=== PATIENT | male | born 1945 | race Caucasian/White ===

== ENCOUNTER 2023-06-25 08:47 | Day surgery (SDC) | payer MEDICARE, OTHER, SELFPAY ==
[2023-06-25 09:21] VITALS: BMI 27.5
--- NOTE | 2023-06-25 12:16 | ITS.CL.CARDI ---
Director Of Recreation Therapy - Cardioversion
Cardioversion
Procedure Report:
Procedure: CAROLIN-guided electrical cardioversion
Pre-operative diagnosis: Persistent atrial fibrillation
Post-operative diagnosis: Persistent atrial fibrillation status post DC cardioversion to sinus rhythm
Anesthesia: MAC
Attending Physician: Balwinder cShwartz MD
Procedure Description: The patient was brought to the electrophysiology laboratory in the fasting state. Informed consent was obtained from the patient prior to the start of the procedure. Adherence to anticoagulation was confirmed. Electrodes were
placed on the patient and connected to an external defibrillator. Monitoring of blood pressure, ECG tracings, and pulse oximetry was initiated. The pads were applied to the patient in the anterior and posterior positions. The patient was sedated by
the anesthesiologist. A CAROLIN (reported separately) was performed prior to the cardioversion. No left atrial or left atrial appendage thrombus was seen. After the CAROLIN probe was removed, a 200 joule biphasic synchronized shock was delivered to the
patient under MAC anesthesia. Sinus rhythm was successfully restored. The patient recovered uneventfully from MAC anesthesia. There were no immediate post-procedure complications. The patient left the lab in good condition. The attending physician
was present throughout the entire procedure.
Impression: Successful CAROLIN-guided direct current cardioversion with baptism of sinus rhythm after one 200 joule biphasic synchronized shock.
== END 2023-06-25 12:07 | disposition home or self-care (01) ==
LOC: CATH 08:47
PROVIDERS: ATTENDING PHYSICIAN Internal Medicine Cardiovascular Disease; FAMILY PHYSICIAN Family Medicine; OTHER PHYSICIAN Internal Medicine Cardiovascular Disease
DX: I48.19 Other persistent atrial fibrillation (principal); I08.8 Other rheumatic multiple valve diseases; I08.3 Combined rheumatic disorders of mitral, aortic and tricuspid valves; I70.0 Atherosclerosis of aorta
CPT/HCPCS: 92960; 93312; 93325; 93320; 93005

== ENCOUNTER 2024-03-02 07:47 | Day surgery (SDC) | payer MEDICARE, OTHER, SELFPAY ==
[2024-02-24 09:06] VITALS: BMI 27.1
[2024-03-02] VITALS (16 sets, daily range): BP systolic 99–159; BP diastolic 62–146
[2024-03-02 11:19] LABS: ACT-LR - POC 377 Seconds (116-155)
[2024-03-02 11:39] LABS: ACT-LR - POC 335 Seconds (116-155)
[2024-03-02 12:00] LABS: ACT-LR - POC 360 Seconds (116-155)
[2024-03-02 12:18] LABS: ACT-LR - POC 353 Seconds (116-155)
[2024-03-02] MEDS: ANESTHETIC LOZENGE 1 LOZENGE PO (13:38)
--- NOTE | 2024-03-02 14:01 | ITS.CL.ABL ---
Violin Teacher - Ablation
Ablation
Procedure Report:
AFIB ablation:
Mr. Kaiser is a very pleasant 78 yr old gentleman with symptomatic persistent AF and atrial flutters, is recommended for atrial fibrillation /flutter ablation.
Date of the Procedure:
03/02/2024
Indications:
Persistent atrial fibrillation / atrial flutter
Pre-Operative Diagnosis:
Persistent atrial fibrillation / atrial flutter
Post-Operative Diagnosis:
Persistent atrial fibrillation / atrial flutter
Procedure Performed:
Atrial fibrillation ablation with Pulsed-Field approach for pulmonary vein isolation
Roof dependent atrial flutter ablation
Posterior wall isolation
Performing Physician:
Samm Pang MD
Assistants:
EP staff
Anesthesia:
See anesthesia records
Detailed Description of the Procedure:
Written informed consent was obtained from the patient after a full explanation of the risks and benefits of the procedure including the risks of sedation and anesthesia.
The patient was brought to the electrophysiology laboratory in stable condition in fasting state. Continuous electrocardiographic and hemodynamic monitoring was initiated.
The initial rhythm was atrial fibrillation.
The procedure site was meticulously prepared with surgical scrub and allowed to dry with no pooling. Sterile draping was applied to cover the procedure site. The image intensifier was draped with sterile bag and positioned over the patient. After
infusion of local anesthetic, vascular access was obtained under ultrasound guidance and sheaths were placed over guide wire as detailed below.
Sheath and Catheter Placement:
The following catheters / sheaths were placed
Sheaths:
��������� 17Fr steerable sheath ([employer] Software[employer]rive�, [employer]) in right femoral
��������� 9Fr in right femoral vein
��������� 7Fr in right femoral vein
Catheters:
��������� DAIANA HD Grid mapping catheter � at locations of RA, LA
��������� Farawave� PFA catheter
��������� ICE catheter -AcuNav - at locations of RA, SVC, and RV.
��������� Decapolar Bard catheter in RA and CS
Intracardiac ECHO:
An 8-Singaporean AcuNav intracardiac ECHO (ICE) probe was advanced through the 9-Singaporean sheath in the right femoral vein into the right atrium under fluoroscopic and ICE ultrasound image guidance and a baseline ECHO study was performed. The left atrial
size was dilated. There was moderate tricuspid regurgitation. The aortic valve was grossly normal. There was low normal left ventricular systolic functions. There is no pericardial effusion. All the four veins were identified and has flow
identified. There was sluggish flow noted in the REUBEN.
During the procedure, ICE was used for monitoring of complications, guidance of trans-septal puncture, monitor the catheter position and tracking ablation lesions. No change in the pericardial space noted throughout the procedure.
Trans-septal Puncture:
Heparin was initiated and infused to maintain appropriate ACT. A pigtail guidewire was advanced through the 8-Singaporean sheath in the right femoral vein into the superior vena cava under fluoroscopic and ICE guidance. The 9-Singaporean sheath was exchanged
for a Faradrive sheath which was advanced into the superior vena cava. A transseptal VersaCross RF pigtail via Faradrive connect system was utilized to perform the trans-septal puncture. The apparatus was withdrawn until it was in contact with the
fossa ovalis. The position was adjusted based on fluoroscopy and ultrasound images from ICE. Under fluoroscopic, hemodynamic and ICE ultrasound guidance, left atrium was cannulated by applying RF energy. Once atrial septum was cannulated, the
pigtail wire was advanced into the left atrium. The guide wire was advanced into the left superior pulmonary vein. Both the sheath and the dilator was advanced into the left atrium. The dilator with the needle was withdrawn. Blood was aspirated from
the Faradrive sheath and arterial blood confirmed. The sheath was flushed. Saline injection noted into the left atrium on ICE. The mapping catheter was advanced in the sheath into the left pulmonary vein. Left atrial pressure was measured.
3D Electroanatomic Mapping:
Using the HD Grid catheter advanced through sheath into the left atrium, an electroanatomic map (EAM) of the left atrium was created using Avisena mapping system. The map was used for localization of catheter position and tacking of ablation
lesions.
The EAM of the left atrium showed 4 pulmonary veins with all 4 veins electrically connected to the body the LA. It showed only scattered areas of low voltage on the posterior and anterior wall of the LA in AF with extensive scarring throughout the
LA. The LA was dilated in size.
Following the EAM, preparation were made for ablation.
Ablation:
Ablation # 1: Pulmonary vein Isolation:
Glycopyrrolate 0.2 mg was given prior to the placement of ablation. Using [employer] pulsed field ablation system, pulmonary vein isolation was achieved. First the ablation catheter was placed in the LSPV and ostial ablation lesions were performed in
a counter clock song approach all around the PV ostium circumferentially. Then the catheter was placed on the antral location and multiple ablation lesions were placed circumferentially on the antrum of the vein.
In the similar fashion, the LIPV were isolated.
Then the catheter was moved to right sided veins. The ostial and antral ablations were placed as noted above.
Patient remained in atrial fibrillation.
Ablation #2: Roof dependent flutter ablation
Patient had hx of atrial flutter and the rhythm was switching from AF to FL to AF during the case. The flutter was coming from the LA. The entrainment could not be done due to degeneration into atrial fibrillation.
This was consistent with roof dependent atrial flutter yolanda with extensive scar on the posterior wall and channels conduction on the posterior wall.
Using the pulsed field ablation catheter, the catheter was placed between left superior pulmonary vein and right severe pulmonary vein with series of overlapping ablation lesions placed.
Ablation # 3: Posterior wall isolation:
Using the pulsed field ablation catheter, the catheter was placed on the posterior wall and moved around the posterior wall to have adequate contact and ablations were placed isolating the posterior wall.
Cardioversion:
Once the PV isolation was achieved, decision was made to proceed with cardioversion. A 200 J biphasic shock was applied on the terrie posterior Zoll patches and sinus rhythm was achieved. No significant pause noted.
EPS and Confirmation of the PVI and bidirectional block:
Following achievement of entrance block at the pulmonary veins, pacing from the HD catheter in each of the four veins at 10 milliamps for 2 milliseconds showed entrance and exit block. All PVI were rechecked at the end of the case and remained
isolated. Entrance and exit block were demonstrated in all veins.
Aggressive maneuvers of arrhythmia induction was attempted without any sustained arrhythmia present.
Post ablation Electroanatomic mapping:
Once ablation was completed, the EAM of the LA was done again in sinus rhythm with excellent demarcation of LA myocardium and isolated antral tissue. There was scattered scar noted on the anterior wall with large anteroseptal patch of scar.
The REUBEN had healthy signals and was not isolated.
Procedure End
ICE study was done again that showed no epicardial accumulation. No complications noted.
Following the completion of the EP study, catheters were removed. Protamine 40 mg was given at the end of the procedure and ACT was checked repeatedly. The sheaths were removed and hemostasis achieved with �Figure of 8� and manual compression after
acceptable ACT is achieved.
Left atrial Pressure:
Mean LA pressure was 19mmHg
Mean RA pressure was 14 mmHg.
Estimated Blood loss:
<10 cc
Specimens Removed:
None.
Implants / Devices:
None
Urine output:
None
Packs / Drains/ Tubes:
None
Instrument / Sponge Count Correct:
Yes
Complications of the Procedure:
None
Condition of Patient at Time of Transfer:
Hemodynamically stable with no neurological or vascular compromise.
Summary:
Successful atrial fibrillation ablation with Pulsed Field approach for pulmonary vein isolation, roof dependent flutter ablation and posterior wall isolation. .
Figures from the Procedure:
Figure 1: The electroanatomic mapping (EAM) of the left atrium with bipolar voltage (purple indicates normal electrical activity with tracy as no myocardial muscle electric activity indicating a line of block or scar.
Pre-ablation - in AF
Post ablation - SR
--- NOTE | 2024-03-02 17:30 | W.PN.UPDATE ---
Update Note
Progress Note Update
78 yo WM s/p PVI (same day). He denies cp, sob, surjit diet, voiding, amb w/o dizziness, EKG SB 1deg AVB, occ PAC's. He will resume Eliquis tonight. He will initiate amiodarone 200mg bid. Activity restrictions reviewed. He will f/u SUEDE BRUSHER in 2 weeks. He is
for d/c home after 530pm.
Procedure Performed:
Atrial fibrillation ablation with Pulsed-Field approach for pulmonary vein isolation
Roof dependent atrial flutter ablation
Posterior wall isolation
== END 2024-03-02 17:30 | disposition home or self-care (01) ==
LOC: CATH 07:47
PROVIDERS: ATTENDING PHYSICIAN Internal Medicine Cardiovascular Disease; FAMILY PHYSICIAN Radiology Vascular & Interventional Radiology
DX: I48.19 Other persistent atrial fibrillation (principal); I48.92 Unspecified atrial flutter; I34.0 Nonrheumatic mitral (valve) insufficiency; I25.10 Atherosclerotic heart disease of native coronary artery without angina pectoris; I10 Essential (primary) hypertension; E78.5 Hyperlipidemia, unspecified; Z82.49 Family history of ischemic heart disease and other diseases of the circulatory system; Z79.01 Long term (current) use of anticoagulants
CPT/HCPCS: C1732; C1894; C1730; C1892; C1759; 85347; 93005; 93655; 93656; 93657; C1733; C1766

== ENCOUNTER 2024-03-06 13:01 | Inpatient (IN) | payer MEDICARE, OTHER, SELFPAY ==
[2024-03-06] VITALS (9 sets, daily range): BP systolic 131–172; BP diastolic 76–101; BMI 26.6; BMI 25.8
[2024-03-06 07:47] LABS: % Basophils 0.4 % (0-2); % Eosinophils 3.7 % (0-6); % Lymphocytes 20.7 % (20.5-51.1); % Monocytes 7.6 % (1.7-9.3); % Neutrophils 66.6 % (42.2-75.2); Absolute Eosinophils 0.4 10^3/uL (0-0.7); Absolute Immature Granulocytes 0.1 10^3/uL (0-0.05); Absolute Lymphocytes 2.1 10^3/uL (1.2-3.4); Absolute Monocytes 0.8 10^3/uL (0.1-0.6); Absolute Neutrophils 6.7 10^3/uL (1.4-6.5); Hematocrit 39.1 % (39.0-52.0); Hemoglobin 12.6 g/dL (13.0-18.0); Mean Corp Hgb Conc. 32.2 g/dL (33.0-37.0); Mean Corpuscular Hgb 30.6 pg (27.0-31.0); Mean Corpuscular Volume 94.9 fL (80.0-94.0); Mean Platelet Volume 9.2 fL (7.4-10.4); Nucleated Red Blood Cells % 0.2 % (-); Platelet Count 202 10^3/uL (130-400); Red Blood Cell Count 4.12 10^6/uL (4.70-6.10); Red Cell Dist. Width 13.5 % (11.5-14.5)
--- NOTE | 2024-03-06 07:56 | ED.GENMED ---
History of Present Illness
General
Chief Complaint: Breathing Problem
Source: patient
Exam Limitations: none
Time Seen by Provider: 03/06/24 07:07
Nursing documentation reviewed up to this point in time: agreed with
History of Present Illness
History of Present Illness:
78-year-old male past medical history of hypertension hyperlipidemia presenting to the emergency department today with concerns of worsening shortness of breath over the past 2 days. Had an ablation for A-fib 3 days ago has had decreased appetite
generalized fatigue and shortness of breath seemingly worse with laying flat with some exertion over the past few days. Denies specific chest pain nausea vomiting fevers.
Past History
Past History
ED Past Medical History: HTN, Hypercholesterolemia, Other (Mitral Valve prolapse), Other (Diverticulosis) and Other (colitis)
ED Past Surgical History: None
Social History
Tobacco: Non-smoker
Alcohol: Occasional
Personal:
Living: with family
Family History
Family History: Negative Diabetes, Hypertension, Early CAD or Asthma
Review of Systems
Review of Systems
Allergies reviewed?: Yes
All Other Systems: ROS reviewed and negative except as documented in HPI and ROS
Phy Exam
Physical Exam
Physical Exam:
GENERAL: Alert , in no apparent distress
EYE: pupils equal and reactive
NECK: Supple, no significant adenopathy.
ENT: o/p clr, mmm.
CARDIAC: Regular rate and rhythm .
LUNGS: Clear breath sounds bilaterally, no acute respiratory distress, no wheezes/rales/rhonchi
ABDOMEN: Soft, without focal tenderness, no r/g, no cvat
NEUROLOGICAL: Alert and oriented, no focal neuro deficits
SKIN: Warm and dry, skin intact.
MUSCULOSKELETAL: No edema, well perfused.
PSYCH: Normal and appropriate interaction.
Scores
Heart Failure Risk
Heart Failure Risk Score: Not Applicable
Course
Orders/Labs/Results
Orders:
Orders
03/06/24 06:49
EKG [Electrocardiogram (*1)] Urgent
Reason for Study: Shortness of Breath
03/06/24 06:50
EKG- Treatment ONCE
03/06/24 07:09
Cardiac Monitoring- Treatment ONCE
CR Chest - 2 Views Urgent
Comment:
Reason For Exam: sob
03/06/24 07:38
Comprehensive Metabolic Panel Urgent
Magnesium Urgent
NT-proBNP Urgent
Troponin I Urgent
03/06/24 07:39
Complete Blood Count/With Diff Urgent
03/06/24 08:56
Echo Follow-up Study Urgent
Reason for Study: Shortness of breath
03/06/24 11:15
Apixaban [Eliquis] 5 mg PO BID
03/06/24 11:48
CT Head W/o Iv Contrast Urgent
Comment:
Reason For Exam: Right hand tingling
Furosemide [Lasix] 40 mg IV NOW STA
03/06/24 11:49
COVID-19 Antigen Routine
Source: Nasal Swab
03/06/24 11:50
Lisinopril [Zestril] 40 mg PO NOW STA
03/06/24 12:21
Urinalysis Reflex To Culture Routine
Abnormal Lab Results
03/06/24 03/06/24
07:38 07:39
RBC 4.12 L 10^6/uL
(4.70-6.10)
Hgb 12.6 L g/dL
(13.0-18.0)
MCV 94.9 H fL
(80.0-94.0)
MCHC 32.2 L g/dL
(33.0-37.0)
Abs Immat Gran (auto) 0.1 H 10^3/uL
(0-0.05)
Absolute Neuts (auto) 6.7 H 10^3/uL
(1.4-6.5)
Absolute Monos (auto) 0.8 H 10^3/uL
(0.1-0.6)
Immature Gran % 1.0 H %
(0-0.5)
BUN 28 H mg/dl
(9-20)
Glucose 107 H mg/dl
(70-99)
ALT 75 H U/L
(0-50)
Troponin I 0.942 H* ng/ml
03/06/24 07:39
03/06/24 07:38
Vital Signs
Initial and Last Documented VS:
Initial Vital Signs
Temp Pulse Resp BP Pulse Ox
98.2 F 58 16 161/89 95
03/06/24 06:55 03/06/24 06:55 03/06/24 06:55 03/06/24 06:55 03/06/24 06:55
Last Documented Vital Signs
Temp Pulse Resp BP Pulse Ox
98.2 F 53 17 165/92 93
03/06/24 06:55 03/06/24 11:50 03/06/24 11:45 03/06/24 11:50 03/06/24 11:45
MDM/Problems Addressed
MDM/Problems Addressed:
78-year-old male presenting to the emergency department with concerns of shortness of breath over the past few days. Recently had a cardiac ablation for A-fib 3 days ago. Currently anticoagulated taking amiodarone and Lasix and lisinopril
metoprolol. Feels very mild symptoms at this time. Had significant symptoms this morning upon awakening. Here patient's blood pressure elevated heart rate slightly low in the 50s in no distress here otherwise labs showing elevated troponin level
though hard to interpret concerning patient had recent cardiac ablation also elevated BNP but no old levels for comparison. Chest x-ray with potential small degree of edema. Case was discussed with cardiology and seen by the instructor warper here.
Echo performed. Plan to admit for IV Lasix and ongoing monitoring and treatment.
*Critical Care Note
Total Time (30-74mins, 75-104mins- exclusive of procedures): Not Applicable
ED Attending Note
-
Portions of this chart may have been created with voice recognition software.� Occasional wrong word or��sound alike� substitutions may have occurred due to the inherent limitations of voice recognition software.
Discharge Plan
Departure
Patient Disposition: Admit
Date of Disposition: 03/06/24
Time of Disposition: 12:33
Admit to: Telemetry
Admit to doctor: Roddy
Presentation/result/management discussed w/ accepting MD/DO: Hospitalist
Patient with high blood pressure during this ER visit?: No
Condition: Good
Covid-19: Not Applicable
Discharge Problem:
Shortness of breath, Hand tingling
Prescriptions:
No Action
atorvastatin 80 MG tablet
80 mg PO QPM
metoprolol succinate 50 mg Tablet Extended Release 24 Hr
50 mg PO QPM
amlodipine 5 mg Tablet
5 mg PO DAILY
Eliquis 5 mg Tablet
5 mg PO BID
furosemide [Lasix] 20 mg Tablet
20 mg PO DAILY
amiodarone 200 mg tablet
200 mg PO BID Qty: 60 8RF
ascorbic acid (vitamin C) [Vitamin C] 500 mg Tablet
500 mg PO DAILY
lisinopril 40 mg Tablet
40 mg PO DAILY
cholecalciferol (vitamin D3) [Vitamin D3] 25 mcg (1,000 unit) Tablet
25 mcg PO DAILY
Referrals:
Deo Dumont MD [Family Provider] -
Interventions
Interventions:
*Risk Screen - Suicide Last Done: 03/06/24 06:55
*General Assessment Last Done: 03/06/24 06:55
*Neglect/Abuse Screening Last Done: 03/06/24 06:55
ED- Fall Risk Assessment Last Done: 03/06/24 07:18
*ED COVID-19 Vaccine History Last Done: 03/06/24 07:18
ED- Cardiac Assessment Last Done: 03/06/24 07:18
ED- Pulmonary Assessment Last Done: 03/06/24 07:18
Discharge Date and Time
Print Language: SUDANESE
[2024-03-06 08:02] LABS: ALT (SGPT) 75 U/L (0-50); AST (SGOT) 48 U/L (17-59); Albumin 4.3 g/dl (3.5-5.0); Alkaline Phosphatase 81 U/L (38-126); Blood Urea Nitrogen 28 mg/dl (9-20); Calcium 9.5 mg/dl (8.4-10.2); Carbon Dioxide 26 mmol/L (22-30); Chloride 105 mmol/L (98-107); Estimated Creatinine Clearance 42 ml/min; Glucose 107 mg/dl (70-99); Magnesium 1.7 mg/dl (1.6-2.3); Sodium 143 mmol/L (135-145); Total Protein 6.8 g/dl (6.3-8.2); eGFR 55.53
[2024-03-06 08:17] LABS: NT-proBNP 1540 pg/ml; Troponin I 0.942 ng/ml
--- NOTE | 2024-03-06 10:04 | CON.CAR ---
Addendum entered and electronically signed by Devante Watts MD 03/06/24 12:02:
I saw and examined the patient.
The RADIO COMMUNICATIONS SUPERINTENDENT's note was reviewed and I agree with the note.
78-year-old male with history history of persistent atrial fibrillation, A-fib ablation 03/02/2024, moderate mitral regurgitation and nonobstructive coronary artery disease (cardiac catheterization many years ago with mild nonobstructive disease,
last nuclear stress 2019 normal) patient presents with generalized fatigue and some shortness of breath. He states he has felt tired since his ablation feels more short of breath when he lays down better when he sits up has not complained of
shortness of breath with short walks to the bathroom he has had some decreased appetite and is just has felt more tired and weak. No fever cough or other illness. Review of systems she has had some numbness involving his right hand which has been
persistent and is noticed that ever since he got home from the hospital. No other numbness or weakness no headache and no other neurologic symptoms. proBNP 1500. No overt edema lungs are clear no JVD. Echocardiogram suggest ejection fraction 50
to 55% with elevated PA pressures 55 to 60 mmHg.
Fatigue shortness of breath. Patient may have component of HFpEF postprocedure
-Diuresis with IV Lasix.
-Covid test
-Note amiodarone was a new medication at discharge unclear if he is having fatigue or GI symptoms related to amiodarone
Abnormal troponin. Difficult to interpret with recent procedure. May have elevation in troponin related to ablation. No current complaints of chest pain. ECG with T wave inversions consistent with prior ECG
-Monitor serial troponins
A-fib. Post ablation. In sinus rhythm
-Continue Eliquis.
-Continue amiodarone which was initiated at discharge
Right hand numbness. Etiology unclear. It has been persistent since he has been home. Etiology unclear. May be related to positioning on table for procedure.
-Neuro eval.
Mitral vegetation. Moderate
Original Note:
Consultation
Consultation Request
Date/Time Consultation Requested: 03/06/2024 09:00
Date/Time Consultation Performed: 03/06/2024 09:10
Requesting Provider: PAUL Murray
Performing Provider: ZUHAIR Gutierrez for Dr. Watts
Reason for Consultation: Shortness of breath
Medical History
-
Chief Complaint: Shortness of breath
History of Present Illness:
Bobby Kaiser is an 78-year-old male (known to Dr. Wright, his primary call center consultant), with moderate mitral regurgitation, hypertension, sinus bradycardia, dyslipidemia, mild nonobstructive coronary artery disease, dilated sinus of Valsalva, and
recurrent persistent atrial fibrillation status post ablation 03/02/2024 who presented to the emergency department with a chief complaint of shortness of breath. He reports after the procedure he had a general sense of unwellness. He went home
hoping it would pass. He endorses poor appetite with poor oral intake and shortness of breath. His shortness of breath gets worse lying flat and improves when he sits up. He has no chest pain or chest burning. No dizziness. No
presyncope/syncope.
Past Medical History
Past Medical History: Arrhythmias (Persistent atrial fibrillation [on apixaban]), CAD (Nonobstructive), HTN, Hypercholesterolemia and Valvular Disease (Moderate mitral regurgitation)
Past Surgical History: Orthopedic and Tonsilectomy
Social History
Tobacco: Non-Smoker
Alcohol: Occasional
Drug: None
Personal:
Living: With Family
Employment: Retired
Family History
Family History: Other (Father with fatal OR at the age of 56.)
Allergies / Home Medications
Allergy/AdvReac Type Severity Reaction Status Date / Time
No Known Allergies Allergy Verified 03/06/24 06:55
�Medication �Instructions �Recorded �Confirmed �Type
atorvastatin 80 mg tablet 80 mg PO QPM High cholesterol 09/21/19 03/06/24 History
lisinopril 40 mg tablet (Prinivil) 40 mg PO DAILY Blood pressure 09/21/19 03/06/24 History
amlodipine 5 mg tablet 5 mg PO DAILY 06/25/23 03/06/24 History
apixaban 5 mg tablet (Eliquis) 5 mg PO BID 06/25/23 03/06/24 History
metoprolol succinate 50 mg 50 mg PO DAILY 06/25/23 03/06/24 History
tablet,extended release 24 hr
amiodarone 200 mg tablet 200 mg PO BID #60 tabs 03/02/24 03/06/24 Rx
furosemide 20 mg tablet (Lasix) 20 mg PO DAILY 03/02/24 03/06/24 History
Review of Systems
-
History Source: Patient
All other systems: Negative unless noted
Constitutional: Fatigue
EENT: No Symptoms
Respiratory: Trouble Breathing
Cardiac: No Symptoms
Abdomen/GI: Anorexia
: No Symptoms
Musculoskeletal: No Symptoms
Skin: No Symptoms
Hematologic/Lymphatic: No Symptoms
Physical Exam
Vital Signs
Temp Pulse Resp BP Pulse Ox
98.2 F 49 18 142/77 95
03/06/24 06:55 03/06/24 09:00 03/06/24 09:00 03/06/24 09:00 03/06/24 09:00
Lab Results
03/06/24 07:39
03/06/24 07:38
Troponin I 0.942 ng/ml H* 03/06/24 07:38
Frx-Z-Naxvudyrzod Pept 1540 pg/ml 03/06/24 07:38
Physical Exam
General: Well Developed, Well Nourished, No Apparent Distress and Comfortable
HEENT: Normocephalic, Anicteric and Moist Mucous Membranes
Respiratory: Non Labored Respirations
Cardiac: S1/S2 and Irregular Rhythm; Negative Peripheral Edema
GI: Soft, Non Tender, Non Distended and Normal Bowel Sounds
Musculoskeletal: No Clubbing, No Cyanosis and No Edema
Skin: Warm and Dry
Neuro: AO x 3
Hematologic/Lymphatic: No Lymphadenopathy
Psych: Calm
Impression / Plan
-
IMPRESSION/PLAN: 78M with moderate mitral regurgitation, hypertension, sinus bradycardia, dyslipidemia, mild nonobstructive coronary artery disease, dilated sinus of Valsalva, and recurrent persistent atrial fibrillation status post ablation
03/02/2024 who presented to the emergency department with a chief complaint of shortness of breath.
Primary call center consultant: Dr. Wright
Shortness of breath
-Worse lying flat, improved sitting up
-CXR stable
-proBNP 1540
-Given ablation 03/02/2024, limited echocardiogram to rule out pericardial effusion
Persistent atrial fibrillation status post ablation
-In sinus rhythm
-Groin stable without hematoma
-Oral Anticoagulation: Apixaban 5 mg twice daily
-[id number]: Score at least 4 (HTN, age 75 or more, Vascular disease)
Abnormal troponin, likely nonischemic myocardial injury in the setting of recent cardiac ablation
-Chest pain-free
-Troponin 0.942
Right hand tingling, head CT ordered
Mitral regurgitation, moderate by TTE 06/25/2023
Hypertension, stable medical therapy
Nonobstructive coronary artery disease, stable without chest pain
SUBJECTIVE:
Worsening shortness of breath lying flat, improved sitting up.
DATA:
Transesophageal echocardiogram, 06/25/2023:
Normal left ventricular size, wall thickness and systolic function. No regional
wall motion abnormalities are seen. The ejection fraction is estimated at 55-
60%.
Normal right ventricular size and function.
Dilated left atrium.
No thrombus detected in the left atrial appendage.
Myxomatous (redundant) mitral valve. Moderate mitral regurgitation.
Mild aortic regurgitation.
Mild tricuspid regurgitation. Estimated pulmonary artery pressure is 30 mmHg
assuming right atrial pressure of 3 mmHg.
Data Reviewed
-
EKG: Report Reviewed by me (Sinus rhythm, first-degree AV block, left axis, rate 60)
Labs: Labs Reviewed by me
Old Records: Reviewed
[2024-03-06] MEDS: ELIQUIS 5 MG PO ×2 (11:49→20:10)
[2024-03-06] MEDS: LASIX 40 MG IV (11:50)
--- NOTE | 2024-03-06 12:21 | CON.NEURO ---
Neuro Assessment/Plan
Assessment
Abrupt onset right hand numbness with speech hoarseness following needed cardiac ablation procedure
Differential diagnosis includes subacute ischemic stroke due to the abrupt onset and continued symptomatology, not associated with strength decline suggesting the possibility of a parietal lobe injury
Patient was not a candidate for either tenecteplase (due to time out of window) or intra-arterial thrombectomy (due to NIH stroke scale less than 6)
Plan
Check MRI of brain, may hold off on CT of head which will be less definitive
Check EMG if imaging fails to demonstrate an ischemic lesion
Check lipid profile
Continue apixaban
Continue atorvastatin
Rehabilitation evaluations including speech therapy
Provide medical educational materials
Goal of normotension based on the patient's symptomatology greater than 24 hours since onset
Goal of normoglycemia
DVT prophylaxis with the use of apixaban
Will follow pending results
Consultation
Order
Date of Consultation: 03/06/24
Requesting Provider: Cardiology
Reason for Consult: Right hand numbness
Subjective/Objective
Subjective Data
Date of Service: March 06, 2024
L-handed
Patient underwent successful cardiac ablation on 03/02/2024. Approximately 1 to 2 hours after the procedure, while heading home, the patient noticed sudden onset of right hand numbness involving the 1st through 5th fingers. There is no involvement
of the dorsum. No involvement of the contralateral side. The numbness has improved since onset although persistent.
The patient approximately at the same time of hand numbness began experiencing hoarseness of his speech which has been persistent
There have been no prior episodes of either hand numbness or speech changes. The patient is not aware of any factors which are improving or worsening these problems.
Objective Data
Vital Signs
Temp Pulse Resp BP Pulse Ox
36.8 C 53 17 165/92 93
03/06/24 06:55 03/06/24 11:50 03/06/24 11:45 03/06/24 11:50 03/06/24 11:45
Lab Results
03/06/24 07:39
03/06/24 07:38
Sodium 143 mmol/L (135-145) 03/06/24 07:38
Potassium 4.0 mmol/L (3.5-5.1) 03/06/24 07:38
BUN 28 mg/dl (9-20) H 03/06/24 07:38
Glucose 107 mg/dl (70-99) H 03/06/24 07:38
Calcium 9.5 mg/dl (8.4-10.2) 03/06/24 07:38
Uup-D-Gppxmhgdwzn Pept 1540 pg/ml 03/06/24 07:38
Patient Allergies
No Known Allergies Allergy (Verified 03/06/24 06:55)
CVA Assessment
Onset of Stroke Symptoms
Onset of symptoms known: Yes
Date of onset of symptoms: 03/02/24
Time of onset of symptoms: 16:00
Time pt last seen normal is known: Yes
Date last time pt seen normal: 03/02/24
Time last time pt seen normal: 16:00
NIH Stroke Score
Level of Consciousness: 0 - Alert
LOC Questions: 0-Answers both correctly
LOC Commands: 0-Performs both correctly
Best Horizontal Gaze: 0-Normal
Visual Li: 0=Normal, no visual loss
Facial Palsy: 0=Normal, symmetrical
Motor - Right Arm: 0=No drift 10 seconds
Motor - Left Arm: 0=No drift 10 seconds
Motor - Right Le-No drift 5 seconds
Motor - Left Le-No drift 5 seconds
Limb Ataxia: 0-Absent
Sensation: 0-Normal
Best Language: 0-No aphasia
Dysarthria: 0-Normal
Extinction and Inattention: 0-No abnormality
Total Score:: 0
Tenecteplase Contraindications
Inclusion and Exclusion criteria reviewed: Yes
IAT Contraindications: NIHSS < 6
Review of Systems
-
History Source: Patient and Family
All other systems: Reviewed and negative
EENT: Negative Swallowing Difficulty
Respiratory: Negative Trouble Breathing
Cardiac: Negative Chest Pain
Abdomen/GI: Negative Incontinence of Stool
Genitourinary: Frequency; Negative Incontinence
Musculoskeletal: Negative Back Pain or Neck Pain
Neuro: Speech Problem; Negative Dizzy or Headache
Physical Exam
-
General: No Apparent Distress and Appears Stated Age
Eyes: OU Absent Papilledema, Round OU, [place] Conjunctivae and No Ptosis
HEENT: Anicteric and Moist Mucous Membranes
Neck: Full Range of Motion
Respiratory: No Dyspnea
Cardiac: No JVD
GI: Non-distended
Skin: Unremarkable
Extremities: No Clubbing, No Cyanosis and No Edema
Psych: Intact Judgement/Insight
Extended Neurological Exam
Mood & Affect: Mood Unremarkable and Affect Unremarkable
Attention Span & Concentration: Awake, Alert, Interactive and No Difficulty with 2 Step Request
Memory: Unremarkable
Tremor: Hand Tremor Absent and Head Tremor Absent
Speech: Quantity Unremarkable and Hoarse; Negative Dysarthric
Cranial Nerve II: Left Eye: Pupillary Reactivity Unremarkable, Pupillary Size Unremarkable and Visual Li Intact
Cranial Nerve II: Right Eye: Pupillary Reactivity Unremarkable, Pupillary Size Unremarkable and Visual Li Intact
Cranial Nerves III, IV, : Extraocular Movement: Extraocular Movement Full in all Directions
Cranial Nerve VII: Facial Symmetry: Normal Facial Symmetry
Cranial Nerve VIII: Hearing: Unremarkable Hearing to Normal Conversational Volume
Cranial Nerves IX, X: Palate Movement: Palate Elevation Symmetric
Cranial Nerve XI: Shoulder Shrug: Unremarkable
Cranial Nerve XII: Tongue Protusion: Midline
Muscle Strength, Overall: Full Throughout and Other (Negative Phalen's; full APB and opponens pollicis strength on the right)
Muscle Bulk & Tone: Bulk Unremarkable and Tone Unremarkable
Pronator Drift: No Drift in Upper Extremities
Deep Tendon Reflexes: Unremarkable Throughout
Cold Sensation: Reduced (Right thenar compared with hyperthenar)
Vibration Sensation: Testing in Upper Extremities and Unremarkable
Touch Sensation: Unremarkable
Coordination: Rgigfw-vvkz-ycjpue Testing Unremarkable
Babinski Sign: Absent Bilaterally
Gait & Station: Up from Seated Without Problem; Negative Wide Based
Data Reviewed
-
MRI Head: Ordered
Labs: Report Reviewed
Lipid Profile: Ordered and Pending
Reviewed with: Physician, Nurse, Patient and Family
Old Records: Summarized
Medications
-
Active Medications
Generic Name Dose Route Start Last Admin
Trade Name Freq PRN Reason Stop Dose Admin
Apixaban 5 mg 03/06/24 11:15 03/06/24 11:49
Apixaban (Eliquis) 5 Mg Tablet PO 04/03/24 11:14 5 mg
BID RONNY Administration
Home Medications
�Medication �Instructions �Recorded
atorvastatin 80 mg tablet 80 mg PO QPM High cholesterol 09/21/19
amlodipine 5 mg tablet 5 mg PO DAILY 06/25/23
apixaban 5 mg tablet (Eliquis) 5 mg PO BID 06/25/23
metoprolol succinate 50 mg 50 mg PO QPM 06/25/23
tablet,extended release 24 hr
amiodarone 200 mg tablet 200 mg PO BID #60 tabs 03/02/24
furosemide 20 mg tablet (Lasix) 20 mg PO DAILY 03/02/24
ascorbic acid (vitamin C) 500 mg 500 mg PO DAILY 03/06/24
tablet (Vitamin C)
cholecalciferol (vitamin D3) 25 25 mcg PO DAILY 03/06/24
mcg (1,000 unit) tablet (Vitamin
D3)
lisinopril 40 mg tablet 40 mg PO DAILY 03/06/24
Past History
Past History
ED Past Medical History: Arrthythmia (atrial tachycardia), HTN, Hypercholesterolemia, Other (Mitral Valve prolapse, BPH, Diverticulosis, Lyme disease), Other (Diverticulosis) and Other (colitis)
ED Past Surgical History: Orthopedic (left knee surgery) and Tonsilectomy
Social History
Tobacco: Non-smoker
Alcohol: Occasional
Personal:
Living: with family
Family History
Family History: Negative Diabetes, Hypertension, Early CAD or Asthma
Medications
-
Medications:
Generic Name Dose Route Start Last Admin
Trade Name Freq PRN Reason Stop Dose Admin
Apixaban 5 mg 03/06/24 11:15 03/06/24 11:49
Apixaban (Eliquis) 5 Mg Tablet PO 04/03/24 11:14 5 mg
BID RONNY Administration
[2024-03-06] MEDS: ZESTRIL 40 MG PO (12:42)
--- NOTE | 2024-03-06 12:50 | HPS.HSE ---
Family Physician
-
Family Physician: Deo Dumont MD
Chief Complaint
-
shortness of breath
History of Present Illness
78-year-old male past medical history of persistent atrial fibrillation status post ablation 4 days ago, moderate mitral regurgitation, mitral valve prolapse, nonobstructive CAD, hypertension, hypercholesteremia, presenting with worsening shortness
of breath worse when he lies down flat. Symptoms started prior to ablation 4 days ago but have gotten worse over the past 4 days. He denies any cough or fevers or chills. He denies lower extremity edema. Denies any weight gain or weight loss.
He also intermittently felt some chest achiness described as pressure but denies any chest pain currently. Denies nausea vomiting or diarrhea.
Since he got home from the hospital 4 days ago he has had persistent numbness in his right hand fingers. He denies any pain of the right arm or back. He denies any weakness. He denies any headache, blurry vision, dizziness or vertigo, focal
weakness.
Drinks alcohol socially. Denies smoking.
Multiple family members with heart disease and brother with aortic aneurysm.
Medical History
Past Medical History
Past Medical History: Reports Other (persistent atrial fibrillation status post ablation 4 days ago, moderate mitral regurgitation, mitral valve prolapse, nonobstructive CAD, hypertension, hypercholesteremia,)
Past Surgical History: Reports None
Social History
Tobacco: Non-smoker
Alcohol: Occasional
Drug: None
Family History
Family History: Other ( Multiple family members with heart disease and brother with aortic aneurysm.)
Allergies / Home Medications
Allergies reflects when Allergies were last updated in [facility].
Home Medications with original date entered in [facility]
Allergy/Medication List:
Allergies
Allergy/AdvReac Type Severity Reaction Status Date / Time
No Known Allergies Allergy Verified 03/06/24 06:55
Home Medications
atorvastatin 80 mg tablet 80 mg PO QPM High cholesterol 09/21/19
amlodipine 5 mg tablet 5 mg PO DAILY 06/25/23
apixaban 5 mg tablet (Eliquis) 5 mg PO BID 06/25/23
metoprolol succinate 50 mg tablet,extended release 24 hr 50 mg PO QPM 06/25/23
amiodarone 200 mg tablet 200 mg PO BID #60 tabs 03/02/24
furosemide 20 mg tablet (Lasix) 20 mg PO DAILY 03/02/24
ascorbic acid (vitamin C) 500 mg tablet (Vitamin C) 500 mg PO DAILY 03/06/24
cholecalciferol (vitamin D3) 25 mcg (1,000 unit) tablet (Vitamin D3) 25 mcg PO DAILY 03/06/24
lisinopril 40 mg tablet 40 mg PO DAILY 03/06/24
Review of Systems
-
History Source: Patient
A 12 point ROS was completed and negative except as noted: Yes
Constitutional: Reports No Symptoms
EENT: Reports No Symptoms
Respiratory: Reports See HPI
Cardiac: Reports See HPI
Abdomen/GI: Reports No Symptoms
: Reports No Symptoms
Musculoskeletal: Reports No Symptoms
Skin: Reports No Symptoms
Neurological: Reports No Symptoms
Endocrine: Reports No Symptoms
Hematologic/Lymphatic: Reports No Symptoms
Psych: Reports No Symptoms
Physical Exam
Vital Signs
Vital Signs
Temp Pulse Resp BP Pulse Ox
98.2 F 53 17 165/92 93
03/06/24 06:55 03/06/24 11:50 03/06/24 11:45 03/06/24 11:50 03/06/24 11:45
Physical Exam
General: Well Developed, Well Nourished and No Apparent Distress
HEENT: NormoCephalic, Moist mucous membranes and Atraumatic
Respiratory: Clear
Cardiac: S1/S2 and Regular Rhythm; No Murmur or Rub
GI: Soft, Non Tender, Non Distended and Normal Bowel Sounds; No Organomegaly
Rectal: Deferred by Provider
Musculoskeletal: No Clubbing, No Cyanosis and No Edema
Skin: No Rash
Neuro: Nonfocal/grossly intact
Laboratory Results
-
03/06/24 07:39
03/06/24 07:38
Laboratory Results
Total Bilirubin 1.0 mg/dl (0.2-1.3) 03/06/24 07:38
AST 48 U/L (17-59) 03/06/24 07:38
ALT 75 U/L (0-50) H 03/06/24 07:38
Alkaline Phosphatase 81 U/L (38-126) 03/06/24 07:38
Troponin I 0.942 ng/ml H* 03/06/24 07:38
Data Reviewed
-
Lab Data: Labs Reviewed by me
Old Records: Reviewed
Impression/Plan
-
IMPRESSION:
PLAN:
# Acute HFpEF exacerbation
-Cardiac BNP 1500
-Chest x-ray shows without significant pulmonary edema
-Echo today shows EF of 50 to 55%
-Check COVID
-Check I's and O's, daily weights
-Lasix 40 IV daily
-Cardiology following
# Nonischemic myocardial injury secondary to CHF exacerbation/recent ablation
-Troponin of 0.9
-EKG shows sinus rhythm with first-degree AV block, incomplete left bundle block, LVH appears similar to prior
-Trend troponins
# Right hand numbness possibly secondary to radial nerve palsy versus CVA
-CT head pending
-Neurology consulted
-May need MRI brain
Persistent atrial fibrillation
-Recently started, continue amiodarone
-Continue Eliquis
-Decrease metoprolol from 50 to 25 mg
Moderate mitral regurgitation
History of mitral valve prolapse
Nonobstructive CAD
Essential hypertension
-Continue amlodipine
-Continue lisinopril
Hypercholesterolemia
-Continue statin
Full code
DVT prophylaxis�Eliquis
Cardiac diet
[2024-03-06 13:15] LABS: COVID-19 Antigen Negative (Negative)
[2024-03-06 14:34] LABS: Lipase 127 U/L (23-300)
[2024-03-06 14:40] LABS: Urine Albumin Negative (Neg - Trace); Urine Bilirubin Negative (Negative); Urine Character Clear (Clear); Urine Color Straw; Urine Glucose Negative (Negative); Urine Ketone Negative (Negative); Urine Leukocyte Negative (Negative); Urine Nitrite Negative (Negative); Urine Occult Blood Trace (Negative); Urine Urobilinogen Negative (Neg - 1+)
[2024-03-06 14:58] LABS: Urine White Cell 0-2 /HPF (0-5)
[2024-03-06 16:07] LABS: Troponin I 0.837 ng/ml
[2024-03-06] MEDS: TOPROL XL 25 MG PO (17:34)
[2024-03-06] MEDS: LIPITOR 80 MG PO (17:35)
[2024-03-06] MEDS: PACERONE 200 MG PO (20:10)
[2024-03-06 22:14] LABS: Troponin I 0.677 ng/ml
[2024-03-07 03:35] VITALS: BP 149/84
[2024-03-07 04:46] LABS: % Basophils 0.4 % (0-2); % Immature Granulocytes 0.7 % (0-0.5); % Lymphocytes 26.8 % (20.5-51.1); % Monocytes 8.8 % (1.7-9.3); % Neutrophils 60.3 % (42.2-75.2); Absolute Eosinophils 0.3 10^3/uL (0-0.7); Absolute Immature Granulocytes 0.1 10^3/uL (0-0.05); Absolute Lymphocytes 2.2 10^3/uL (1.2-3.4); Absolute Monocytes 0.7 10^3/uL (0.1-0.6); Hematocrit 36.9 % (39.0-52.0); Hemoglobin 12.9 g/dL (13.0-18.0); Mean Corpuscular Hgb 31.2 pg (27.0-31.0); Mean Corpuscular Volume 89.3 fL (80.0-94.0); Nucleated Red Blood Cells % 0 % (-); Platelet Count 218 10^3/uL (130-400); Red Blood Cell Count 4.13 10^6/uL (4.70-6.10); Red Cell Dist. Width 12.9 % (11.5-14.5); White Blood Cell Count 8.2 10^3/uL (4.8-10.8)
[2024-03-07 05:05] LABS: Troponin I 0.601 ng/ml
[2024-03-07 06:00] VITALS: BMI 25.3
[2024-03-07 06:19] LABS: ALT (SGPT) 59 U/L (0-50); AST (SGOT) 36 U/L (17-59); Albumin 3.9 g/dl (3.5-5.0); Alkaline Phosphatase 88 U/L (38-126); Blood Urea Nitrogen 22 mg/dl (9-20); Carbon Dioxide 26 mmol/L (22-30); Chloride 102 mmol/L (98-107); Estimated Creatinine Clearance 46 ml/min; Glucose 98 mg/dl (70-99); Potassium 3.6 mmol/L (3.5-5.1); Sodium 140 mmol/L (135-145); Total Bilirubin 1.6 mg/dl (0.2-1.3); Total Protein 6.4 g/dl (6.3-8.2); eGFR > 60.00
[2024-03-07 07:30] VITALS: BP 137/75
[2024-03-07] MEDS: ELIQUIS 5 MG PO ×2 (08:12→20:28)
[2024-03-07] MEDS: PACERONE 200 MG PO ×2 (08:12→20:29)
[2024-03-07] MEDS: NORVASC 5 MG PO (08:13)
[2024-03-07] MEDS: VITAMIN C 500 MG PO (08:13)
[2024-03-07] MEDS: ZESTRIL 40 MG PO (08:13)
[2024-03-07] MEDS: LASIX 40 MG IV (08:13)
[2024-03-07] MEDS: VITAMIN D3 (cholecalciferol) 25 MCG PO (08:13)
[2024-03-07 10:14] LABS: Troponin I 0.399 ng/ml
--- NOTE | 2024-03-07 10:22 | PTOTSP ---
Clinical Swallow Evaluation
78M with admission for CHF exacerbation and numbness in right hand and fingers p/w a mildly impaired oropharyngeal swallow likely related to vocal hoarseness s/p recent intubation w/ cardiac ablation.
Recommend:
1. Regular solids, thin liquids
2. Meds as tolerated
3. Strategies: small bites, single sips, slow rate, chew well
4. Consider ENT consult if vocal hoarseness persists
5. [employer] service to follow up x1-2
--- NOTE | 2024-03-07 10:29 | CM ---
Patient seen at bedside. IA completed
Dx: CHF exacerbation
PMH: status post ablation 4 days ago, CAD, HTN, AFIB
Patient lives in a 2 story home with spouse, with 1st floor set up, 2 steps to enter
PLOF: Independent
Denies DME
Denies VN/rehab in past
PCP: Deo Ayon
Pharm[facility]: [facility]
PLAN: Home, currently no needs anticipated. CM to follow
[2024-03-07 11:00] VITALS: BP 141/76
--- NOTE | 2024-03-07 11:32 | W.PN.CD ---
Today's Communication / Plan
-
overall feeling better but not quite at baseline. Continue six with close monitoring of renal function
Neurology assessmentof right had numbnessin progress
afib is stable. Continue current therapy
Impression / Plan
-
IMPRESSION/PLAN: 78M with moderate mitral regurgitation, hypertension, sinus bradycardia, dyslipidemia, mild nonobstructive coronary artery disease, dilated sinus of Valsalva, and recurrent persistent atrial fibrillation status post ablation
03/02/2024 who presented to the emergency department with a chief complaint of shortness of breath.
Primary wool dyer: Dr. Wright
Shortness of breath
- covid negative 03/06/24
-Worse lying flat, improved sitting up
-CXR report wiht mild HF by report with very small effusions
-proBNP 1540
- 03/02/2024, echocardiogram EF 50-55% and no effusion
- IV lasix given
Persistent atrial fibrillation status post ablation
-In sinus rhythm
-Groin stable without hematoma
-Oral Anticoagulation: Apixaban 5 mg twice daily
-[id number]: Score at least 4 (HTN, age 75 or more, Vascular disease)
Abnormal troponin, likely nonischemic myocardial injury in the setting of recent cardiac ablation
-Chest pain-free
-Troponin 0.942 peak on admit has trended down.
- can update noninvasice evaluation for ischemia as outpatient.
Right hand tingling,
- neuro consulted and MRI recommended.
- defer to neruo regarding evaluation
Mitral regurgitation, moderate by TTE 06/25/2023
Hypertension, stable medical therapy
Nonobstructive coronary artery disease, stable without chest pain
SUBJECTIVE:
breathingimproved. No CP
DATA:
Transesophageal echocardiogram, 06/25/2023:
Normal left ventricular size, wall thickness and systolic function. No regional
wall motion abnormalities are seen. The ejection fraction is estimated at 55-
60%.
Normal right ventricular size and function.
Dilated left atrium.
No thrombus detected in the left atrial appendage.
Myxomatous (redundant) mitral valve. Moderate mitral regurgitation.
Mild aortic regurgitation.
Mild tricuspid regurgitation. Estimated pulmonary artery pressure is 30 mmHg
assuming right atrial pressure of 3 mmHg.
Physical Exam
Vital Signs/Labs
Vital Signs
Temp Pulse Resp BP Pulse Ox
97.8 F 59 18 137/75 95
03/07/24 07:30 03/07/24 08:12 03/07/24 07:30 03/07/24 08:12 03/07/24 07:30
03/06/24 03/07/24 03/08/24
06:59 06:59 06:59
Actual Weight 73.301 kg
03/07/24 04:21
03/07/24 04:20
Magnesium 1.7 mg/dl (1.6-2.3) 03/06/24 07:38
03/06/24
07:38
Gdq-O-Qmsqpzdcnlk Pept 1540
LAB Results
03/06/24 03/06/24 03/06/24
07:38 15:35 19:55
Troponin I 0.942 H* 0.837 H* Cancelled
03/06/24 03/07/24 03/07/24
21:43 04:21 09:30
Troponin I 0.677 H* 0.601 H* 0.399 H* D
Physical Exam
Constitutional: No acute distress
Cardiovascular: Rhythm & rate is regular
Respiratory: Respiratory effort normal
GI: Soft
Neuro/Psych: Alert
Data Reviewed
-
Date of Service: March 07, 2024
Medical Decision Making: Reviewed Test Results
EKG: Report Reviewed by me
Medical Tests (PFT, Pathology etc): Report Reviewed by me
Labs: Labs Reviewed by me
[2024-03-07] MEDS: ATIVAN 1 MG PO (11:52)
--- NOTE | 2024-03-07 14:01 | W.PN.HOSP.TC ---
Today's Communication/Plan
-
continue current Tx, recheck BMP in AM
transition Lasix from IV to oral as per Cardio timing
Assessment / Plan
Assessment / Plan
# Acute HFpEF exacerbation
-Cardiac BNP 1500
-Chest x-ray shows without significant pulmonary edema
-Echo today shows EF of 50 to 55%
-Check COVID
-Check I's and O's, daily weights
-Lasix 40 IV daily
-Cardiology following
# Nonischemic myocardial injury secondary to CHF exacerbation/recent ablation
-Troponin of 0.9
-EKG shows sinus rhythm with first-degree AV block, incomplete left bundle block, LVH appears similar to prior
-Trend troponins
# Right hand paresthesia involving fingers, possibly secondary to radial nerve palsy versus CVA
-MRI:There are punctate areas of restricted diffusion in multiple vascular territories involving both cerebral hemispheres in a pattern suggesting nonhemorrhagic embolic infarct with suspected cardiac source. Focal areas of acute/subacute
nonhemorrhagic infarct are detailed above
2). There is mild cortical and cerebellar atrophy with mild nonspecific white matter changes as described above.
-Neurology consulted
[facility] Neck With Contrast - nl
JU[facility] [place] - nl
Persistent atrial fibrillation post ablation, now in NSR
-s/p A. Fib ablation on 03/02
-Recently started, continue amiodarone
-Continue Eliquis
-Decrease metoprolol from 50 to 25 mg
Moderate mitral regurgitation
History of mitral valve prolapse
Nonobstructive CAD
Essential hypertension
-Continue amlodipine
-Continue lisinopril
Hypercholesterolemia
-Continue statin
Full code
DVT prophylaxis�Eliquis
Cardiac diet
Anticipated Discharge: 24 - 48 hours
Subjective/Interval History
-
Date of Service: March 07, 2024
Less sob, still with hoarseness
Objective Data
-
Labs:
Laboratory Results
03/07/24 03/07/24
04:20 04:21
WBC 8.2
Hgb 12.9 L
Hct 36.9 L
Plt Count 218
Sodium 140
Potassium 3.6
Chloride 102
Carbon Dioxide 26
BUN 22 H
Creatinine 1.2
Glucose 98
Calcium 9.0
Total Bilirubin 1.6 H
AST 36
ALT 59 H
Alkaline Phosphatase 88
Vital Signs:
Vital Signs
Temp Pulse Resp BP Pulse Ox
97.9 F 58 18 141/76 95
03/07/24 11:00 03/07/24 11:00 03/07/24 11:00 03/07/24 11:00 03/07/24 11:00
I&O
03/06/24 03/07/24 03/08/24
06:59 06:59 06:59
Intake Total 660 / 660
Balance 660 / 660
Review of Systems
-
History Source: Patient and Coordinated Provider
Constitutional: Denies Fever
EENT: Reports No Symptoms Reported
Respiratory: Reports Trouble Breathing
Cardiac: Reports No Symptoms; Denies Chest Pain
Musculoskeletal: Reports Other (Rt hand fingers, paresthesia)
Physical Exam
-
General: Well Developed, Well Nourished and No Apparent Distress
HEENT: Normocephalic, Atraumatic and Moist Mucous Membranes
Respiratory: Clear to Auscultation; Negative Wheezes, Rales or Rhonchi
Cardiac: Regular Rhythm and S1/S2
GI: Soft, Nontender and Nondistended
Musculoskeletal: No Clubbing, No Cyanosis and No Edema
--- NOTE | 2024-03-07 14:28 | W.PN.NEURO.1 ---
Today's Communication / Plan
-
Check lipid profile
Continue atorvastatin 80 mg daily, add Ezetimibe if LDL greater than 70
Neuro Assessment/Plan
Assessment
Abrupt onset right hand numbness with speech hoarseness following needed cardiac ablation procedure
MRI of brain demonstrates bilateral acute ischemic strokes including in the parietal lobe which are most likely responsible for the right handed sensory change as well as speech change
Plan
Check lipid profile
Continue atorvastatin 80 mg daily, add Ezetimibe if LDL greater than 70
Continue apixaban
Rehabilitation evaluations including speech therapy
Goal of normotension
Goal of normoglycemia
DVT prophylaxis with the use of apixaban
Will follow pending results
Subjective/Objective
Subjective Data
Date of Service: March 07, 2024
Objective Data
Vital Signs
Temp Pulse Resp BP Pulse Ox
36.6 C 58 18 141/76 95
03/07/24 11:00 03/07/24 11:00 03/07/24 11:00 03/07/24 11:00 03/07/24 11:00
Lab Results
03/07/24 04:21
03/07/24 04:20
Sodium 140 mmol/L (135-145) 03/07/24 04:20
Potassium 3.6 mmol/L (3.5-5.1) 03/07/24 04:20
BUN 22 mg/dl (9-20) H 03/07/24 04:20
Glucose 98 mg/dl (70-99) 03/07/24 04:20
Calcium 9.0 mg/dl (8.4-10.2) 03/07/24 04:20
Cas-D-Cultfxwzzvj Pept 1540 pg/ml 03/06/24 07:38
Patient Allergies
No Known Allergies Allergy (Verified 03/06/24 06:55)
Data Reviewed
-
MRI Head: Report Reviewed
MRA Head: Report Reviewed
MRA Neck: Report Reviewed
Labs: Report Reviewed
Lipid Profile: Ordered
Reviewed with: Physician and Patient
Old Records: Summarized
Past History
Past History
ED Past Medical History: Arrthythmia (atrial tachycardia), CVA (Following ablation February 2024), HTN, Hypercholesterolemia, Other (Mitral Valve prolapse, BPH, Diverticulosis, Lyme disease), Other (Diverticulosis) and Other (colitis)
ED Past Surgical History: Cardiac (Cardiac ablation February 2024), Orthopedic (left knee surgery) and Tonsilectomy
Social History
Tobacco: Non-smoker
Alcohol: Occasional
Personal:
Living: with family
Family History
Family History: Negative Diabetes, Hypertension, Early CAD or Asthma
Medications
-
Medications:
Generic Name Dose Route Start Last Admin
Trade Name Freq PRN Reason Stop Dose Admin
Amiodarone HCl 200 mg 03/06/24 20:00 03/07/24 08:12
Amiodarone 200 Mg Tablet PO 04/03/24 19:59 200 mg
BID RONNY Administration
Amlodipine Besylate 5 mg 03/07/24 08:00 03/07/24 08:13
Amlodipine 5 Mg Tablet PO 04/04/24 07:59 5 mg
DAILY RONNY Administration
Apixaban 5 mg 03/06/24 11:15 03/07/24 08:12
Apixaban (Eliquis) 5 Mg Tablet PO 04/03/24 11:14 5 mg
BID RONNY Administration
Ascorbic Acid 500 mg 03/07/24 08:00 03/07/24 08:13
Ascorbic Acid 500 Mg Tablet PO 04/04/24 07:59 500 mg
DAILY RONNY Administration
Atorvastatin Calcium 80 mg 03/06/24 18:00 03/06/24 17:35
Atorvastatin (Lipitor) 80 Mg Tablet PO 04/03/24 17:59 80 mg
QPM RONNY Administration
Cholecalciferol 25 mcg 03/07/24 08:00 03/07/24 08:13
Cholecalciferol (Vitamin D3) 25 Mcg Tablet (1,000 Units) PO 04/04/24 07:59 25 mcg
DAILY RONNY Administration
Furosemide 40 mg 03/07/24 08:00 03/07/24 08:13
Furosemide 40 Mg (10 Mg/Ml) 4 Ml Vial IV 04/04/24 07:59 40 mg
DAILY RONNY Administration
Lisinopril 40 mg 03/07/24 08:00 03/07/24 08:13
Lisinopril 20 Mg Tablet PO 04/04/24 07:59 40 mg
DAILY RONNY Administration
Metoprolol Succinate 25 mg 03/06/24 18:00 03/06/24 17:34
Metoprolol 50 Mg Extended Release Tablet PO 04/03/24 17:59 25 mg
QPM RONNY Administration
Sodium Chloride 0 flush 03/06/24 14:00
Sodium Chloride 0.9% (Flush) Syringe IV 04/03/24 13:59
PER PROTOCOL RONNY
[2024-03-07 15:30] VITALS: BP 106/60
[2024-03-07] MEDS: LIPITOR 80 MG PO (16:43)
[2024-03-07] MEDS: TOPROL XL 25 MG PO (16:43)
[2024-03-07 19:49] VITALS: BP 111/63
[2024-03-07 21:37] LABS: HDL Cholesterol 38 mg/dl; LDL Cholesterol, Calculated 83 mg/dl; Total Cholesterol 134 mg/dl (50-199); Triglyceride 65 mg/dl (10-149); Very Low Density Lipoprotein 13 mg/dl (0-30)
[2024-03-07 23:16] VITALS: BP 119/66
[2024-03-08] VITALS (7 sets, daily range): BP systolic 118–141; BP diastolic 64–72; PULSE 60; O2SAT 97; BMI 25.0
--- NOTE | 2024-03-08 08:31 | W.PN.CD ---
Today's Communication / Plan
-
- CVA noted on MRI .Right hadn numbnes with some improvement today. Manangement per neuro . will try to avoid hypotension
- SOB improved. stop lasix
- check pending labs
-Remains in sinus continue amio and metoprolol and monitor rates
- remains on Eliquis
- holding lisinopril and monitoring BP
Impression / Plan
-
IMPRESSION/PLAN: 78M with moderate mitral regurgitation, hypertension, sinus bradycardia, dyslipidemia, mild nonobstructive coronary artery disease, dilated sinus of Valsalva, and recurrent persistent atrial fibrillation status post ablation
03/02/2024 who presented to the emergency department with a chief complaint of shortness of breath.
Primary merchandise manager: Dr. Wright
Shortness of breath/ acute HFpEF
- covid negative 03/06/24
-Improved - breathing feels back to baseline
-CXR report wiht mild HF by report with very small effusions
-proBNP 1540
- 03/02/2024, echocardiogram EF 50-55% and no effusion
-stop lasix
Persistent atrial fibrillation status post ablation
-In sinus rhythm
-Groin stable without hematoma
-Oral Anticoagulation: Apixaban 5 mg twice daily
-[id number]: Score at least 4 (HTN, age 75 or more, Vascular disease)
- amiodarone started post ablation
- metoprolol lowered. Monitor HR as patietn receives more amio
Abnormal troponin, likely nonischemic myocardial injury in the setting of recent cardiac ablation
-Chest pain-free
-Troponin 0.942 peak on admit has trended down.
- can update noninvasice evaluation for ischemia as outpatient.
Right hand tingling/ CVA
- mild improvement today
- neuro consulted and MRI. MRI of brain demonstrates bilateral acute ischemic strokes including in the parietal lobe which neurology suggests are most likely responsible for the right handed sensory change as well as speech change
- continue tx per neuro
- continuinEliquisas per neuro
Mitral regurgitation, moderate by TTE 06/25/2023
Hypertension, stable medical therapy
Nonobstructive coronary artery disease, stable without chest pain
SUBJECTIVE:
breathing improved. No CP
DATA:
Transesophageal echocardiogram, 06/25/2023:
Normal left ventricular size, wall thickness and systolic function. No regional
wall motion abnormalities are seen. The ejection fraction is estimated at 55-
60%.
Normal right ventricular size and function.
Dilated left atrium.
No thrombus detected in the left atrial appendage.
Myxomatous (redundant) mitral valve. Moderate mitral regurgitation.
Mild aortic regurgitation.
Mild tricuspid regurgitation. Estimated pulmonary artery pressure is 30 mmHg
assuming right atrial pressure of 3 mmHg.
Physical Exam
Vital Signs/Labs
Vital Signs
Temp Pulse Resp BP Pulse Ox
97.5 F 50 18 119/67 96
03/08/24 07:50 03/08/24 07:50 03/08/24 07:50 03/08/24 07:50 03/08/24 07:50
03/07/24 03/08/24 03/09/24
06:59 06:59 06:59
Actual Weight 73.301 kg 72.376 kg
03/07/24 04:21
Magnesium 1.7 mg/dl (1.6-2.3) 03/06/24 07:38
Triglycerides Cancelled 03/07/24 14:30
LDL Cholesterol, Calc Cancelled 03/07/24 14:30
VLDL Cholesterol, Calc Cancelled 03/07/24 14:30
HDL Cholesterol Cancelled 03/07/24 14:30
03/06/24
07:38
Vrq-B-[id number] Pept 1540
LAB Results
03/06/24 03/06/24 03/06/24
07:38 15:35 19:55
Troponin I 0.942 H* 0.837 H* Cancelled
03/06/24 03/07/24 03/07/24
21:43 04:21 09:30
Troponin I 0.677 H* 0.601 H* 0.399 H* D
Physical Exam
Constitutional: No acute distress
Cardiovascular: Rhythm & rate is regular
Respiratory: Wheeze Absent and Rhonchi Absent
GI: Soft and Non tender
Neuro/Psych: Alert, Oriented and AO x 3
Data Reviewed
-
Date of Service: March 08, 2024
Medical Decision Making: Reviewed Test Results
Medical Tests (PFT, Pathology etc): Report Reviewed by me
Labs: Labs Reviewed by me
[2024-03-08] MEDS: NORVASC 5 MG PO (08:51)
[2024-03-08] MEDS: VITAMIN D3 (cholecalciferol) 25 MCG PO (08:51)
[2024-03-08] MEDS: LASIX IV (08:51)
[2024-03-08] MEDS: PACERONE 200 MG PO ×2 (08:51→20:32)
[2024-03-08] MEDS: ELIQUIS 5 MG PO ×2 (08:51→20:33)
[2024-03-08] MEDS: VITAMIN C 500 MG PO (08:51)
[2024-03-08] MEDS: ZESTRIL PO (08:52)
--- NOTE | 2024-03-08 09:02 | W.PN.HOSP.TC ---
Today's Communication/Plan
-
see bold
Assessment / Plan
Assessment / Plan
# Acute HFpEF exacerbation
-Cardiac BNP 1500, chest x-ray shows without significant pulmonary edema
-Echo today shows EF of 50 to 55%
-Appreciate cardiology input, shortness of breath improved status post IV Lasix
# Right hand paresthesia involving fingers
#Acute CVA
-MRI:There are punctate areas of restricted diffusion in multiple vascular territories involving both cerebral hemispheres in a pattern suggesting nonhemorrhagic embolic infarct with suspected cardiac source. Focal areas of acute/subacute
nonhemorrhagic infarct are detailed above
2). There is mild cortical and cerebellar atrophy with mild nonspecific white matter changes as described above.
MA Neck With Contrast - nl
MA [place] - nl
-Appreciate neurology input, LDL 83, currently on atorvastatin 80 mg nightly
-Add Zetia for goal LDL less than 70, check HgA1C
-PT/OT
Essential hypertension
-Continue amlodipine
-Hold lisinopril due to soft BP
Persistent atrial fibrillation post ablation, now in NSR
-s/p A. Fib ablation on 03/02
-Recently started, continue amiodarone
-Continue Eliquis
-Decrease metoprolol from 50 to 25 mg
# Nonischemic myocardial injury secondary to CHF exacerbation/recent ablation
-Troponin of 0.9
-EKG shows sinus rhythm with first-degree AV block, incomplete left bundle block, LVH appears similar to prior
Moderate mitral regurgitation
History of mitral valve prolapse
Nonobstructive CAD
Hypercholesterolemia
-Continue statin
DVT prophylaxis�Eliquis
Full code
Total time spent to see the patient on the floor, examine the patient, review data and lab results, discuss treatment plan with patient, nursing staff around 50 minutes.
Physical Exam
General: No acute distress
HEENT: Normocephalic, Atraumatic, EOMI, MMM
Respiratory: Clear to Auscultation bilaterally
Cardiac: Normal S1/S2, Regular Rate and Rhythm
GI: Soft, Nontender, Nondistended, Normal Bowel Sounds
Extremities: No Clubbing, Cyanosis, or Edema
Neuro: Nonfocal/Grossly Intact
Psych: Calm, Cooperative
Derm: No Visible lesions
Anticipated Discharge: 24 - 48 hours
Subjective/Interval History
-
Date of Service: March 08, 2024
Patient reports that his right hand paresthesias is the same. Denies shortness of breath, no dyspnea with activity. No chest pain.
No fever, no vomiting.
Objective Data
-
Labs:
Laboratory Results
03/08/24
08:05
Sodium Pending
Potassium Pending
Chloride Pending
Carbon Dioxide Pending
BUN Pending
Creatinine Pending
Glucose Pending
Calcium Pending
Vital Signs:
Vital Signs
Temp Pulse Resp BP Pulse Ox
97.5 F 54 18 119/67 96
03/08/24 07:50 03/08/24 08:51 03/08/24 07:50 03/08/24 08:51 03/08/24 07:50
I&O
03/07/24 03/08/24 03/09/24
06:59 06:59 06:59
Intake Total 660 / 660 1260 / 1260
Balance 660 / 660 1260 / 1260
[2024-03-08 09:40] LABS: Blood Urea Nitrogen 32 mg/dl (9-20); Calcium 9.2 mg/dl (8.4-10.2); Carbon Dioxide 30 mmol/L (22-30); Chloride 100 mmol/L (98-107); Estimated Creatinine Clearance 39 ml/min; Glucose 95 mg/dl (70-99); Potassium 3.8 mmol/L (3.5-5.1); Sodium 138 mmol/L (135-145); eGFR 50.81
--- NOTE | 2024-03-08 11:02 | CM ---
application architect manager reviewed patient's chart and met with patient and patient to return to home when stable, no needs.
Plan; Home no needs when stable.
[2024-03-08] MEDS: ZETIA 10 MG PO (17:28)
[2024-03-08] MEDS: LIPITOR 80 MG PO (17:29)
[2024-03-08] MEDS: TOPROL XL 25 MG PO (17:29)
[2024-03-09 03:51] VITALS: BP 128/79
[2024-03-09 06:00] VITALS: BMI 25.0
[2024-03-09 07:02] VITALS: BP 129/67
[2024-03-09] MEDS: NORVASC 5 MG PO (08:36)
[2024-03-09] MEDS: ELIQUIS 5 MG PO (08:36)
[2024-03-09] MEDS: VITAMIN D3 (cholecalciferol) 25 MCG PO (08:37)
[2024-03-09] MEDS: ZETIA 10 MG PO (08:37)
[2024-03-09] MEDS: VITAMIN C 500 MG PO (08:37)
[2024-03-09] MEDS: PACERONE 200 MG PO (08:37)
--- NOTE | 2024-03-09 08:54 | W.PN.HOSP.TC ---
Today's Communication/Plan
-
Cleared by cardiology for discharge today
Assessment / Plan
Assessment / Plan
# Acute HFpEF exacerbation
-Cardiac BNP 1500, chest x-ray shows without significant pulmonary edema
-Echo today shows EF of 50 to 55%
-Appreciate cardiology input, shortness of breath improved status post IV Lasix
-Cleared by cardiology for discharge on Lasix 20 mg daily, cardiology started Aldactone 25 mg daily
# Right hand paresthesia involving fingers
#Acute CVA
-MRI:There are punctate areas of restricted diffusion in multiple vascular territories involving both cerebral hemispheres in a pattern suggesting nonhemorrhagic embolic infarct with suspected cardiac source. Focal areas of acute/subacute
nonhemorrhagic infarct are detailed above
2). There is mild cortical and cerebellar atrophy with mild nonspecific white matter changes as described above.
MA Neck With Contrast - nl
MA [place] - nl
-Appreciate neurology input, LDL 83, currently on atorvastatin 80 mg nightly
-Added Zetia for goal LDL less than 70, HgbA1C 6.0
-PT/OT -independent
Essential hypertension
-Cardiology recommends stopping amlodipine, stopping metoprolol
-Resume lisinopril 40 mg daily upon discharge
Persistent atrial fibrillation post ablation, now in NSR
-s/p A. Fib ablation on 03/02/24
-Recently started, continue amiodarone
-Continue Eliquis
-Cardiology recommends stopping metoprolol
#Glucose intolerance/prediabetes
Hemoglobin A1c 6.0
Patient informed of his diagnosis, recommend dietary modification
#Voice hoarseness
From endotracheal intubation during his ablation on 03/02/2024
Supportive care
# Nonischemic myocardial injury secondary to CHF exacerbation/recent ablation
-Troponin of 0.9
-EKG shows sinus rhythm with first-degree AV block, incomplete left bundle block, LVH appears similar to prior
Moderate mitral regurgitation
History of mitral valve prolapse
Nonobstructive CAD
Hypercholesterolemia
-Continue statin
DVT prophylaxis�Eliquis
Full code
Physical Exam
General: No acute distress
HEENT: Normocephalic, Atraumatic, EOMI, MMM
Respiratory: Clear to Auscultation bilaterally
Cardiac: Normal S1/S2, Regular Rate and Rhythm
GI: Soft, Nontender, Nondistended, Normal Bowel Sounds
Extremities: No Clubbing, Cyanosis, or Edema
Neuro: Nonfocal/Grossly Intact
Psych: Calm, Cooperative
Derm: No Visible lesions
Anticipated Discharge: Today
Subjective/Interval History
-
Date of Service: March 09, 2024
Right finger paresthesias continues to improve. Reports some throat hoarseness. No chest pain, no shortness of breath. No fever, no vomiting.
Objective Data
-
Vital Signs:
Vital Signs
Temp Pulse Resp BP Pulse Ox
98.5 F 54 18 129/67 96
03/09/24 07:02 03/09/24 07:02 03/09/24 07:02 03/09/24 07:02 03/09/24 07:02
I&O
03/08/24 03/09/24 03/10/24
06:59 06:59 06:59
Intake Total 1260 / 1260 1440 / 1440
Balance 1260 / 1260 1440 / 1440
--- NOTE | 2024-03-09 10:59 | CM ---
Chart reviewed and plan is to home when stable, no needs
Plan; Home when stable.
[2024-03-09 11:10] VITALS: BP 148/84
--- NOTE | 2024-03-09 11:27 | W.PN.CD ---
Today's Communication / Plan
-
Stop metoprolol to allow for Amio
Stop Amlodipine
Add Aldactone 25 mg daily
Resume PO Lasix 20 mg daily
BMP 2 and 4 weeks
Later I will add SGLT2-I if not too expensive and likely move GIOVANNI-I to ARB or possibly ARNI
Will consider outpatient stress test
Impression / Plan
-
IMPRESSION/PLAN: 78M with moderate mitral regurgitation, hypertension, sinus bradycardia, dyslipidemia, mild nonobstructive coronary artery disease, dilated sinus of Valsalva, and recurrent persistent atrial fibrillation status post ablation
03/02/2024 who presented to the emergency department with a chief complaint of shortness of breath.
Primary conservation engineer: Dr. Wright
Shortness of breath/ acute HFpEF
- covid negative 03/06/24
-Improved - breathing feels back to baseline
-CXR report wiht mild HF by report with very small effusions
-proBNP 1540
- 03/02/2024, echocardiogram EF 50-55% and no effusion
-move to PO Lasix, add aldactone
Persistent atrial fibrillation status post ablation
-In sinus rhythm
-Groin stable without hematoma
-Oral Anticoagulation: Apixaban 5 mg twice daily
-[id number]: Score at least 4 (HTN, age 75 or more, Vascular disease)
- amiodarone started post ablation
- will stop metoprolol to allow AMIO
- At least 3-6 months of AMIO IS PLANNED
Abnormal troponin, likely nonischemic myocardial injury in the setting of recent cardiac ablation
-Chest pain-free
-Troponin 0.942 peak on admit has trended down.
- can update noninvasice evaluation for ischemia as outpatient.
Right hand tingling/ CVA
- mild improvement today
- neuro consulted and MRI. MRI of brain demonstrates bilateral acute ischemic strokes including in the parietal lobe which neurology suggests are most likely responsible for the right handed sensory change as well as speech change
- continue tx per neuro
- continuinEliquisas per neuro
Mitral regurgitation, moderate by TTE 06/25/2023
Hypertension, stable medical therapy
Nonobstructive coronary artery disease, stable without chest pain
SUBJECTIVE:
breathing improved. No CP
DATA:
Transesophageal echocardiogram, 06/25/2023:
Normal left ventricular size, wall thickness and systolic function. No regional
wall motion abnormalities are seen. The ejection fraction is estimated at 55-
60%.
Normal right ventricular size and function.
Dilated left atrium.
No thrombus detected in the left atrial appendage.
Myxomatous (redundant) mitral valve. Moderate mitral regurgitation.
Mild aortic regurgitation.
Mild tricuspid regurgitation. Estimated pulmonary artery pressure is 30 mmHg
assuming right atrial pressure of 3 mmHg.
Physical Exam
Vital Signs/Labs
Vital Signs
Temp Pulse Resp BP Pulse Ox
98.5 F 54 18 129/67 96
03/09/24 07:02 03/09/24 07:02 03/09/24 07:02 03/09/24 07:02 03/09/24 07:02
03/08/24 03/09/24 03/10/24
06:59 06:59 06:59
Actual Weight 72.376 kg 72.291 kg
03/07/24 04:21
03/08/24 08:05
Magnesium 1.7 mg/dl (1.6-2.3) 03/06/24 07:38
Triglycerides Cancelled 03/07/24 14:30
LDL Cholesterol, Calc Cancelled 03/07/24 14:30
VLDL Cholesterol, Calc Cancelled 03/07/24 14:30
HDL Cholesterol Cancelled 03/07/24 14:30
03/06/24
07:38
Jqy-O-Iewgjemoyni Pept 1540
LAB Results
03/06/24 03/06/24 03/06/24
15:35 19:55 21:43
Troponin I 0.837 H* Cancelled 0.677 H*
03/07/24 03/07/24
04:21 09:30
Troponin I 0.601 H* 0.399 H* D
Physical Exam
Constitutional: No acute distress
EENT: Anicteric
Cardiovascular: Rhythm & rate is regular and Pedal edema is absent
Respiratory: Respiratory effort normal and Lungs clear to auscul.
GI: Soft and Distention absent
Neuro/Psych: AO x 3
Data Reviewed
-
Date of Service: March 09, 2024
--- NOTE | 2024-03-09 12:04 | W.DCSUMMARY ---
Discharge Summary
Discharge Data
Date of Admission: 03/06/24
Date of Discharge: 03/09/24
-
Pending Results: No
Hospital Course
Discharge diagnosis:
Acute heart failure with a preserved ejection fraction
Acute stroke
Right hand paresthesias involving the fingers
Essential hypertension
Persistent atrial fibrillation status post ablation 03/02/2024
Voice hoarseness from intubation during procedure
Glucose intolerance
Nonischemic myocardial injury troponin elevation
Moderate mitral regurgitation
Coronary artery disease
Hyperlipidemia
Consults: Cardiology, neurology
Brain MRI:
1).There are punctate areas of restricted diffusion in multiple vascular territories involving both cerebral hemispheres in a pattern suggesting nonhemorrhagic embolic infarct with suspected cardiac source. Focal areas of acute/subacute
nonhemorrhagic infarct are detailed above
2). There is mild cortical and cerebellar atrophy with mild nonspecific white matter changes as described above.
Hospital course:
78-year-old male with a past medical history of atrial fibrillation status post ablation 03/02/2024, hypertension, hyperlipidemia, and coronary artery disease was admitted for acute heart failure with a preserved ejection fraction. Patient was seen
in conjunction with cardiology, and diuresed with IV Lasix. His breathing normalized. Cardiology recommends discharge on Lasix 40 mg p.o. daily.
Patient's hospital course was complicated by acute stroke. He had right hand paresthesia. He was seen in conjunction with neurology. He is already on Eliquis 5 mg twice a day, and atorvastatin 80 mg every afternoon. Since his LDL was 83,
neurology recommends adding Zetia for goal LDL less than 70. Patient's hemoglobin A1c is 6.0, he has glucose intolerance. Dietary modification was recommended to the patient.
Patient is bradycardic. He was recently started on amiodarone. Cardiology recommends stopping metoprolol and amlodipine. He was started on Aldactone 25 mg daily, and can continue amiodarone 200 mg twice daily and lisinopril 40 mg daily.
Patient is medically stable for discharge. He needs to follow-up with cardiology in the office as scheduled, as well as his primary care doctor in 1 week.
Disposition: Home self-care
Discharge planning: Required 50
Discharge Plan
-
Patient Disposition: Home (Routine Discharge)
Discharge Diagnosis/Procedures: Acute heart failure with a preserved ejection fraction, persistent atrial fibrillation status post ablation, stroke, right hand paresthesia
Condition: Good
Diet: Low Fat and Low Cholesterol
Activity: As tolerated
Driving Restrictions: As prior to admission
Blood Work: BMP when you follow-up with cardiology
Activity Restrictions/Additional Instructions:
Please follow-up with your primary care doctor in 1 week, and cardiology as directed.
Instructions: *CBC Heart Failure Instructions
Referrals:
Deo Dumont MD [Family Provider] - in one week
Prescriptions:
New
spironolactone 25 mg Tablet
25 mg PO DAILY Qty: 30 0RF
ezetimibe 10 mg Tablet
10 mg PO DAILY Qty: 30 0RF
Continued
atorvastatin 80 MG tablet
80 mg PO QPM
Eliquis 5 mg Tablet
5 mg PO BID
furosemide [Lasix] 20 mg Tablet
20 mg PO DAILY
amiodarone 200 mg tablet
200 mg PO BID Qty: 60 8RF
ascorbic acid (vitamin C) [Vitamin C] 500 mg Tablet
500 mg PO DAILY
lisinopril 40 mg Tablet
40 mg PO DAILY
cholecalciferol (vitamin D3) [Vitamin D3] 25 mcg (1,000 unit) Tablet
25 mcg PO DAILY
Discontinued
metoprolol succinate 50 mg Tablet Extended Release 24 Hr
50 mg PO QPM
amlodipine 5 mg Tablet
5 mg PO DAILY
Discharge Orders:
Discharge Patient (As Directed); Ordered 03/09/24
Ordered By: Prateek Davis
Discharge Date and Time
Discharge Date/Time: 03/09/24 13:31
Print Language: WOLOF
--- NOTE | 2024-03-09 12:31 | PTOTSP ---
ST Acute Care Evaluations/Follow-Up
Given the results of pt's MRI of Brain, additional cognitive linguistic testing was deemed warranted.
Background Information:
- Pt lives in a home with his .
- At baseline, pt independently drives, manages his finances, and manages his medications. Pt's manges the groceries, cooking, cleaning, and laundry. Pt is a retired CPA. He enjoys exercising, golfing, going out on their boat, and going to
their [employer]. Pt is left handed. Pt wears reading glasses. Pt denies any hearing difficulties.
General Observations:
- Pt had adequate recall of his chief complaints for coming to the hospital, his diagnoses, and how his diagnoses are impacting his current function.
- Pt was observed to have a weak, breathy, harsh vocal quality.
- Pt demonstrated intermittent throat clearing at baseline, even without PO intake.
Formal Assessments:
- Pt was administered the MOCA - pt received a score of a 26/30 which is indicative of WFL. Pt lost 1 point for a visuospatial copy task, 1 point for a short term memory task, 1 point for a naming task, and 1 point for a generative naming task.
- Pt was administered the Quick Aphasia Battery (QAB), and received the following scores:
Word comprehension 10.00 (WFL)
Sentence comprehension 10.00 (WFL)
Word finding 8.25 (MILD)
Grammatical construction 10.00 (WFL)
Speech motor programming 10.00 (WFL)
Repetition 10.00 (WFL)
Reading 10.00 (WFL)
QAB overall 9.76 (WFL)
Findings:
Overall, pt presents with an atypical vocal quality that should be assessed further by ENT prior to receiving tx by FRAME ALIGNER. Pt also presents with some mild word finding difficulties that should be investigated further. Pt continues to present with
clinical signs of a possible pharyngeal dysphagia - difficult to differentiate from baseline throat clearing. Will continue to monitor while admitted to the hospital.
Recommendations:
- Pt needs an ENT consult prior to receiving any voice tx by FRAME ALIGNER. This can be completed as an OP, if needed.
- Pt should continue receiving FRAME ALIGNER services while admitted to monitor/tx dysphagia, anomia, and voice needs.
- Pt would benefit from ongoing FRAME ALIGNER services upon d/c at the OP level of care.
--- NOTE | 2024-03-10 09:49 | W.HF.CON ---
Heart Failure
- LV Function
Left ventricular function study result: LV Ejection fraction >/= 50%
Ejection Fraction Percentage: 50-55
- ARNI
Patient already on ARNI: No
Heart Failure ARNI Not Indicated: LV Ejection Fraction >/= 40%
- ACEI/ARB
Patient already on ACEI/ARB: Yes
- Beta Nery
Patient already on Evidence Based Beta Nery: No
Heart Failure Evidence Based Beta Nery Not Indicated: LV Ejection Fraction > 40%
- Mineralocorticord Receptor Antagonist
Patient already on MRA: Yes
- SGLT-2 Inhibitor
Patient already on SGLT-2 Inhibitor: No
Heart Failure SGLT-2 Inhibitor Not Indicated: LV Ejection Fraction >40%
- Afib Anticoagulation
Patient already on Anticoagulation for Afib: Yes
- NYHA CHF Classification
NYHA CHF Classification Level: Class III - Symptoms w/ min exertion, interferes w/ nml daily activity
- ACC/AHA Stage
ACC/AHA Stage: Stage C: Symptomatic Heart Failure
== END 2024-03-09 13:31 | disposition home or self-care (01) | DRG 64 ==
LOC: 4 WEST ACU 13:01
PROVIDERS: Internal Medicine; Nurse Practitioner Gerontology; Physician Assistant; ADMITTING PHYSICIAN Hospitalist; ATTENDING PHYSICIAN Family Medicine; EMERGENCY PHYSICIAN Student in an Organized Health Care Education/Training Program; FAMILY PHYSICIAN Radiology Vascular & Interventional Radiology; OTHER PHYSICIAN Internal Medicine Cardiovascular Disease; OTHER PHYSICIAN Psychiatry & Neurology Neurology
DX: I63.9 Cerebral infarction, unspecified (principal); I50.33 Acute on chronic diastolic (congestive) heart failure; I48.19 Other persistent atrial fibrillation; I5A Non-ischemic myocardial injury (non-traumatic); I11.0 Hypertensive heart disease with heart failure; I08.1 Rheumatic disorders of both mitral and tricuspid valves; I25.10 Atherosclerotic heart disease of native coronary artery without angina pectoris; E78.00 Pure hypercholesterolemia, unspecified; I44.0 Atrioventricular block, first degree; R20.0 Anesthesia of skin; Z79.01 Long term (current) use of anticoagulants; Z79.899 Other long term (current) drug therapy; Z82.49 Family history of ischemic heart disease and other diseases of the circulatory system; K57.30 Diverticulosis of large intestine without perforation or abscess without bleeding; Z11.52 Encounter for screening for COVID-19; J45.909 Unspecified asthma, uncomplicated; N40.0 Benign prostatic hyperplasia without lower urinary tract symptoms
CPT/HCPCS: 93308; 70544; 70548; 70551; 71046; 80048; 80053; 80061; 81003; 81015; 83036; 83690; 83735; 83880; 84484; 85025; 87811; 92523; 92526; 92610; 93005; 97116; 97162; 99285; A9585

== ENCOUNTER 2024-06-11 15:03 | Inpatient (IN) | payer MEDICARE, OTHER, SELFPAY ==
[2024-06-11] VITALS (18 sets, daily range): BP systolic 119–176; BP diastolic 59–106; PULSE 54–100; BMI 24.6
[2024-06-11 08:53] LABS: % Basophils 0.4 % (0-2); % Eosinophils 1.5 % (0-6); % Immature Granulocytes 0.4 % (0-0.5); % Monocytes 7.4 % (1.7-9.3); % Neutrophils 50.3 % (42.2-75.2); Absolute Eosinophils 0.2 10^3/uL (0-0.7); Absolute Lymphocytes 3.9 10^3/uL (1.2-3.4); Absolute Monocytes 0.7 10^3/uL (0.1-0.6); Absolute Neutrophils 4.9 10^3/uL (1.4-6.5); Hematocrit 36.4 % (39.0-52.0); Hemoglobin 12.5 g/dL (13.0-18.0); Mean Corp Hgb Conc. 34.3 g/dL (33.0-37.0); Mean Corpuscular Hgb 31.5 pg (27.0-31.0); Mean Corpuscular Volume 91.7 fL (80.0-94.0); Mean Platelet Volume 8.9 fL (7.4-10.4); Nucleated Red Blood Cells % 0 % (-); Platelet Count 212 10^3/uL (130-400); Red Blood Cell Count 3.97 10^6/uL (4.70-6.10); Red Cell Dist. Width 13.7 % (11.5-14.5); White Blood Cell Count 9.8 10^3/uL (4.8-10.8)
[2024-06-11 09:09] LABS: ALT (SGPT) 139 U/L (0-50); AST (SGOT) 97 U/L (17-59); Alkaline Phosphatase 99 U/L (38-126); Blood Urea Nitrogen 47 mg/dl (9-20); Calcium 9.5 mg/dl (8.4-10.2); Carbon Dioxide 19 mmol/L (22-30); Chloride 108 mmol/L (98-107); Glucose 116 mg/dl (70-99); Potassium 3.8 mmol/L (3.5-5.1); Sodium 137 mmol/L (135-145); Total Protein 6.7 g/dl (6.3-8.2); eGFR 37.58
[2024-06-11 09:16] LABS: NT-proBNP 189 pg/ml; Troponin I < 0.012 ng/ml
--- NOTE | 2024-06-11 09:47 | ED.GENMED ---
History of Present Illness
General
Chief Complaint: Breathing Problem
Source: patient and spouse
Exam Limitations: none
Time Seen by Provider: 06/11/24 09:40
Nursing documentation reviewed up to this point in time: agreed with
History of Present Illness
History of Present Illness:
78 yo male w h/o Afib on Eliquis, HTN, HLD, CHF, MVP, CVA following ablation 2023, presents for general fatigue, weakness, NAIDU progressing over past [address] Wright 2-3 weeks ago as d/u after cardio ablation and put back on Lasix 40 mg
daily and Spironolactone 10 mg daily. States 'I really didn't feel well since then until about the end of April,' started to fell a little better and felt OK at visit with Dr. Wright.
Reports 13 lb wt loss since Feb 2024, appetite is poor. Denies n/v/d/c
Past History
Past History
ED Past Medical History: Arrthythmia (atrial tachycardia), CVA (Following ablation February 2024), HTN, Hypercholesterolemia, Other (Mitral Valve prolapse, BPH, Diverticulosis, Lyme disease), Other (Diverticulosis) and Other (colitis)
ED Past Surgical History: Cardiac (Cardiac ablation February 2024), Orthopedic (left knee surgery) and Tonsilectomy
Social History
Tobacco: Non-smoker
Alcohol: Occasional
Personal:
Living: with family
Family History
Family History: Negative Diabetes, Hypertension, Early CAD or Asthma
Review of Systems
Review of Systems
Allergies reviewed?: Yes
Constitutional: Reports fatigue; Denies fever
Respiratory: Reports trouble breathing (SOB with exertion (steps) past 10 days); Denies cough
Cardiac: Denies chest pain, diaphoresis, palpitations or syncope
ABD/GI: Reports anorexia; Denies abdominal pain, nausea, vomiting or diarrhea
: Denies dysuria, frequency or difficulty voiding
Musculoskeletal: Reports no symptoms
Skin: Reports no symptoms
Neurological: Reports no symptoms
Phy Exam
Physical Exam
Physical Exam:
GENERAL: No acute distress. A&Ox3.
CONSTITUTIONAL: Afebrile.
EYES: clear, conjunctivae normal
ENMT: moist mucus membranes
RESPIRATORY: Regular respirations, nonlabored, lungs clear.
CARDIOVASCULAR: Regular rate and rhythm, no murmurs, no rubs.
GI: Soft, nontender, normal BS
MUSCULOSKELETAL: Moves with ease. Well perfused. No edema
SKIN: Warm, dry, pink
PSYCH: Normal mood and affect. Well kept, interactive and appropriate
NEUROLOGIC: Awake, alert and oriented. No focal neurological deficits
Scores
Heart Failure Risk
Heart Failure Risk Score: Not Applicable
Course
Orders/Labs/Results
Orders:
Orders
06/11/24 08:17
TSH Reflex To Free T4 Urgent
Comment: ADD
06/11/24 08:35
EKG [Electrocardiogram (*1)] Urgent
Reason for Study: Shortness of Breath
06/11/24 08:36
EKG- Treatment ONCE
06/11/24 08:47
Complete Blood Count/With Diff Urgent
Comprehensive Metabolic Panel Urgent
Magnesium Urgent
Comment: ADD
NT-proBNP Urgent
Troponin I Urgent
06/11/24 10:07
Electrocardiogram (*1) Urgent
Reason for Study: Shortness of Breath
EKG- Treatment ONCE
06/11/24 10:09
CR Chest - 2 Views Urgent
Comment:
Reason For Exam: SOB
06/11/24 10:14
COVID-19 Antigen Urgent
Source: Nasal Swab
Influenza A+B Rapid Molecular Urgent
SURINDER Source: Nasal Swab
Specimen Description:
06/11/24 10:15
0.9% Sodium Chloride 500 ml [Nss] 500 ml IV BOLUS
06/11/24 11:23
Add On- LAB Urgent
Tests Added?: Magnesium, TSH reflex to T4
06/11/24 11:57
CARDIOLOGY CONSULT Urgent
Consulting Provider: Armand Barnes
Was physician already notified: Yes
Reason for consult: symptomatic bradycardia
06/11/24 12:30
Add On- LAB Urgent
Tests Added?: TSH w/Reflex
06/11/24 12:35
Echo 2D MMode Color/Doppler Routine
Reason for Study: sob/naidu, MVP, mod MR
Orthostatic Vital Signs As Directed
Orthostatic VS Frequency: Now
06/11/24 14:43
Admit/Transfer Patient As Directed
Co-Sign Provider:
Level of Care: Inpatient admission
Assign to:: Telemetry
Physician / Group: Janki
Diagnosis: JACKIE, Orthostasis
Reason for Telemetry: Arrhythmia
Date to Stop Telemetry: 06/14/24
Time to Stop Telemetry: 11:00
Reason for Hospitalization: IVFs
Expected length of stay greater than two midnights?: Yes
ELOS- Estimated Length of Stay in days: 3
I certify the patient meets the requirements for IP care: Yes
PRN Pain Medication Management As Directed
May give lesser potent ordered pain med per pt: Yes
preference::
Protocol:: Medication orders for pain may be administered in a
manner that supports deferring to patient preference
when the pt is:
- Requesting an ordered lesser potent pain medication.
Least to most potent pain medications are defined
as: acetaminophen < NSAID < tramadol < opioids
(morphine, oxycodone, hydromorphone).
- Requesting a lesser dose of the same medication IF
ORDERED.
- Requesting a less intrusive route of administration
if both routes are prescribed by the provider (PO <
IV).
06/11/24 14:44
Code Status As Directed
Resuscitation Status: Full Code
06/14/24 11:00
DC Protocol for Telemetry ONCE
Abnormal Lab Results
06/11/24
08:47
RBC 3.97 L 10^6/uL
(4.70-6.10)
Hgb 12.5 L g/dL
(13.0-18.0)
Hct 36.4 L %
(39.0-52.0)
MCH 31.5 H pg
(27.0-31.0)
Absolute Lymphs (auto) 3.9 H 10^3/uL
(1.2-3.4)
Absolute Monos (auto) 0.7 H 10^3/uL
(0.1-0.6)
Chloride 108 H mmol/L
(98-107)
Carbon Dioxide 19 L mmol/L
(22-30)
BUN 47 H mg/dl
(9-20)
Creatinine 1.8 H mg/dL
(0.7-1.3)
Glucose 116 H mg/dl
(70-99)
AST 97 H U/L
(17-59)
ALT 139 H U/L
(0-50)
06/11/24 08:47
06/11/24 08:47
Vital Signs
Initial and Last Documented VS:
Initial Vital Signs
Temp Pulse Resp BP Pulse Ox
97.5 F 55 16 150/72 100
06/11/24 08:32 06/11/24 08:32 06/11/24 08:32 06/11/24 08:32 06/11/24 08:32
Last Documented Vital Signs
Temp Pulse Resp BP Pulse Ox
97.5 F 55 13 160/72 99
06/11/24 08:32 06/11/24 15:45 06/11/24 15:45 06/11/24 15:32 06/11/24 15:45
MDM/Problems Addressed
MDM/Problems Addressed:
78 yo male w h/o Afib on Eliquis, HTN, HLD, CHF, MVP, CVA following ablation 2023, presents for general fatigue, weakness, NAIDU progressing over past [address] Wright 2-3 weeks ago as d/u after cardio ablation and put back on Lasix 40 mg
daily and Spironolactone 10 mg daily. States 'I really didn't feel well since then until about the end of April,' started to fell a little better and felt OK at visit with Dr. Wright.
Reports 13 lb wt loss since Feb 2024, appetite is poor. Denies n/v/d/c
Afebrile, NAD
EKG: Sinus bradycardia with first-degree AV block
9:45 AM:
Bradycardia: monitor showing sinus with 1st degree block
CBC unremarkable
CMP: BUN/creat 47/1.8, mild elevations AST and ALT
Troponin WNL
BNP WNL
11:35 AM:
Chest x-ray radiology report read, no evidence of active cardiopulmonary disease.
Hospitalist notified of admission
Service Technician consult in
Dr. Barnes in will get echo at bedside and if OK, pt good to go cardiac song
Hospitalist PA Rose in and will admit, pt orthostatically hypotensive, acute on chronic kidney insufficiency
*EKG
EKG Intrepretation Date: 06/11/24
Interpretation: abnormal
Heart Rate: 49
Rate: bradycardiac
Rhythm: sinus
[place]: normal axis
Interval: first degree heart block
QRS Pattern: normal QRS
Ischemia: no ischemia
*Critical Care Note
Total Time (30-74mins, 75-104mins- exclusive of procedures): Not Applicable
ED Attending Note
-
Portions of this chart may have been created with voice recognition software.� Occasional wrong word or��sound alike� substitutions may have occurred due to the inherent limitations of voice recognition software.
Discharge Plan
Departure
Patient Disposition: Admit
Date of Disposition: 06/11/24
Time of Disposition: 11:55
Admit to: Telemetry
Presentation/result/management discussed w/ accepting MD/DO: Hospitalist
Condition: Fair
Covid-19: Negative COVID-19
Discharge Problem:
Acute on chronic renal insufficiency, General weakness
Interventions
Interventions:
*Risk Screen - Suicide Last Done: 06/11/24 08:32
*General Assessment Last Done: 06/11/24 08:32
*Neglect/Abuse Screening Last Done: 06/11/24 08:32
*ED COVID-19 Vaccine History Last Done: 06/11/24 08:32
ED- Cardiac Assessment Last Done: 06/11/24 10:43
ED- Pulmonary Assessment Last Done: 06/11/24 10:43
--- NOTE | 2024-06-11 09:59 | EDRN ---
Ignacio MOFFETT in room w/pt at this time.
[2024-06-11] MEDS: NSS 500 IV ×2 (10:24→16:50)
[2024-06-11 10:36] LABS: COVID-19 Antigen Negative (Negative)
--- NOTE | 2024-06-11 10:45 | EDRN ---
Pt OOB to BR on return from xray. Pt states he has had sx of SOB, Dizziness, weakness, and cough
--- NOTE | 2024-06-11 12:12 | HPS.HSE ---
Family Physician
-
Family Physician: Jaren Ayon
Chief Complaint
-
Fatigue, and Dyspnea on Exertion
History of Present Illness
Patient is an 78 y/o male past medical history of CAD, CHF, A-Fib, HTN, and CKD who presents with weakness and dyspnea on exertion. Patient reports he had an ablation in February and hasn't felt well since that time. He was admitted for heart
failure and an acute CVA in Feb/Mar 2024 after the ablation. He reports feels a little better towards the end of April, but in May starting feeling worse again. He reports increasing weakness, dyspnea on exertion, and some dizziness. He
notes poor appetite with weight loss of about 13lbs since February.
Medical History
Past Medical History
Past Medical History: Reports Other
Additional Past Medical History:
Non-Obstructive Coronary Artery Disease
Persistent Atrial Fibrillation
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
Chronic HFpEF
Moderate Mitral Regurgitation with Mitral Valve Prolapse
Essential Hypertension
Hyperlipidemia
Past Surgical History: Reports Other
Additional Past Surgical History:
Tonsillectomy
Quad Tendon Repair
Cardiac Ablation
Social History
Tobacco: Non-smoker
Alcohol: Occasional
Personal:
Family History
Family History: Not pertinent
Allergies / Home Medications
Allergies reflects when Allergies were last updated in [facility].
Home Medications with original date entered in [facility]
Allergy/Medication List:
Allergies
Allergy/AdvReac Type Severity Reaction Status Date / Time
No Known Allergies Allergy Verified 06/11/24 08:34
Home Medications
atorvastatin 80 mg tablet 80 mg PO HS High cholesterol 09/21/19
apixaban 5 mg tablet (Eliquis) 5 mg PO BID Blood Clot Prevention/Tx 06/25/23
furosemide 20 mg tablet (Lasix) 40 mg PO DAILY Fluid Retention/Swelling 03/02/24
ascorbic acid (vitamin C) 500 mg tablet (Vitamin C) 500 mg PO DAILY Supplement 03/06/24
cholecalciferol (vitamin D3) 25 mcg (1,000 unit) tablet (Vitamin D3) 25 mcg PO DAILY High Cholesterol 03/06/24
lisinopril 40 mg tablet 40 mg PO DAILY Blood Pressure 03/06/24
ezetimibe 10 mg tablet 10 mg PO DAILY #30 tabs 03/09/24
spironolactone 25 mg tablet 25 mg PO DAILY #30 tabs 03/09/24
amiodarone 200 mg tablet 200 mg PO HS 06/11/24
Review of Systems
-
A 12 point ROS was completed and negative except as noted: Yes
Constitutional: Denies Fever or Chills
Respiratory: Reports Trouble Breathing; Denies Cough
Cardiac: Denies Chest Pain or Palpitations
Abdomen/GI: Denies Abdominal Pain, Nausea, Vomiting or Diarrhea
Physical Exam
Vital Signs
Vital Signs
Temp Pulse Resp BP Pulse Ox
97.5 F 53 14 156/77 98
06/11/24 08:32 06/11/24 11:30 06/11/24 11:30 06/11/24 11:00 06/11/24 11:30
Physical Exam
General: Comfortable and Conversant
HEENT: Anicteric and Moist mucous membranes
Respiratory: Clear and Non Labored Respirations
Cardiac: S1/S2 and Regular Rhythm (Heart Rate slightly low in the 50-60s range)
GI: Soft and Non Tender
Musculoskeletal: No Clubbing, No Cyanosis and No Edema
Skin: Warm and Dry
Neuro: Awake, Alert, Oriented and Nonfocal/grossly intact
Psych: Calm
Laboratory Results
-
06/11/24 08:47
06/11/24 08:47
Laboratory Results
Total Bilirubin 1.0 mg/dl (0.2-1.3) 06/11/24 08:47
AST 97 U/L (17-59) H 06/11/24 08:47
ALT 139 U/L (0-50) H 06/11/24 08:47
Alkaline Phosphatase 99 U/L (38-126) 06/11/24 08:47
Troponin I < 0.012 ng/ml 06/11/24 08:47
Data Reviewed
-
Medical Tests (Nuc Med, Echo, EKG etc): Report Reviewed by me (ECGs)
Lab Data: Labs Reviewed by me
Impression/Plan
-
Orthostatic Hypotension
-Give additional 500cc NSS overnight
-Hold Lasix and Spironolactone
-Add GINA stockings
-Recheck orthostatic vital signs in AM
Acute Kidney Injury, likely from over-diuresis
-Hold Lasix and Spironolactone
-Hold Lisinopril
-Recheck labs in AM
Persistent Atrial Fibrillation
-Continue amiodarone at decreased dose as per Cardiology
-Continue Eliquis
Chronic HFpEF
Moderate Mitral Regurgitation with Mitral Valve Prolapse
-Monitor Is&Os and Daily Weights
Essential Hypertension
-Lisinopril hold due to JACKIE
-Monitor blood pressure closely
Hyperlipidemia
-Continue atorvastatin and Zetia
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
Hx Non-Obstructive Coronary Artery Disease
DVT proph: Eliquis
Code Status: Full Code
--- NOTE | 2024-06-11 12:13 | EDRN ---
Pt OOB to BR at this time.
--- NOTE | 2024-06-11 12:20 | EDRN ---
Dr. Rhodes in room w/ pt.
--- NOTE | 2024-06-11 12:25 | CON.CAR ---
Addendum entered and electronically signed by Armand Barnes MD 06/11/24 14:07:
Patient seen and examined in collaboration with [employer]; agree with below.
-78-year-old male with atrial fibrillation status-post ablation (02/2024; on Eliquis and amiodarone), mitral valve prolapse with moderate MR, hypertension, and hyperlipidemia presenting with shortness of breath and generalized weakness.
-Patient's telemetry strips were reviewed with EP Cardiology; he has sinus rhythm with PACs.
-EP cardiology recommends decreasing amiodarone from 200 mg daily to 200 mg 4 days a week.
-No clinical signs of heart failure on examination.
-Will get an echocardiogram now to exclude a pericardial effusion after undergoing ablation (patient is on Eliquis) or worsening valvular heart disease (although compensated on examination--clear lungs, no edema).
-If echocardiogram is unremarkable, then no further cardiac workup appears to be indicated at this time and the patient can be follow-up with Cardiology as an outpatient.
Original Note:
Consultation
Consultation Request
Date/Time Consultation Requested: 06/11/24 12p
Date/Time Consultation Performed: 06/11/24 12:15p
Requesting Provider: ZUHAIR Chua
Performing Provider: ZUHAIR Hitchcock for Dr. Barnes
Reason for Consultation: bradycardia
Medical History
-
Chief Complaint: sob, fatigue
History of Present Illness:
Mr. Kaiser is an 78 yo male with MVP with moderate mitral regurgitation, mild nonobstructive CAD, dilated sinus of Valsalva, HTN, HLD, pre-DM, HFpEF (post ablation 02/2024), paroxysmal atrial tachycardia, and persistent AFib (onset 05/2023) on
Eliquis and Amiodarone s/p PVI, roof dependent aflutter ablation and posterior wall isolation 03/02/24, who presents to the ER with c/o SOB/TAO and fatigue for 2 weeks. He has outpatient labs 04/2024 that showed creatinine 2.12 and therefore Lasix
and Aldactone were stopped. He was seen by Dr. Wright in the office 05/05/24 for follow up and felt well. He then called the office 05/28/24 c/o increased SOB/TAO and fatigue, so his Lasix 40mg daily and Aldactone 25mg daily were resumed. He states
diuretics have not helped his symptoms at all and they persist. His main complaint is significant fatigue.
Past Medical History
Past Medical History: Other (as above)
Past Surgical History: Other (as above)
Social History
Tobacco: Non-Smoker
Alcohol: Occasional (one drink a month)
Personal:
Living: With Family
Employment: Retired
Family History
Family History: Reviewed & Not Pertinent
Allergies / Home Medications
Allergy/AdvReac Type Severity Reaction Status Date / Time
No Known Allergies Allergy Verified 06/11/24 08:34
�Medication �Instructions �Recorded �Confirmed �Type
atorvastatin 80 mg tablet 80 mg PO QPM High cholesterol 09/21/19 03/06/24 History
apixaban 5 mg tablet (Eliquis) 5 mg PO BID Blood Clot 06/25/23 03/06/24 History
Prevention/Tx
amiodarone 200 mg tablet 200 mg PO BID #60 tabs 03/02/24 03/06/24 Rx
furosemide 20 mg tablet (Lasix) 20 mg PO DAILY Fluid 03/02/24 03/06/24 History
Retention/Swelling
ascorbic acid (vitamin C) 500 mg 500 mg PO DAILY Supplement 03/06/24 03/06/24 History
tablet (Vitamin C)
cholecalciferol (vitamin D3) 25 25 mcg PO DAILY High Cholesterol 03/06/24 03/06/24 History
mcg (1,000 unit) tablet (Vitamin
D3)
lisinopril 40 mg tablet 40 mg PO DAILY Blood Pressure 03/06/24 03/06/24 History
ezetimibe 10 mg tablet 10 mg PO DAILY #30 tabs 03/09/24 Rx
spironolactone 25 mg tablet 25 mg PO DAILY #30 tabs 03/09/24 Rx
Review of Systems
-
History Source: Patient
All other systems: Negative unless noted
Physical Exam
Vital Signs
Temp Pulse Resp BP Pulse Ox
97.5 F 56 16 172/79 99
06/11/24 08:32 06/11/24 12:00 06/11/24 12:00 06/11/24 12:00 06/11/24 12:00
Lab Results
06/11/24 08:47
06/11/24 08:47
Troponin I < 0.012 ng/ml 06/11/24 08:47
Gza-H-Dhmvoucywsb Pept 189 pg/ml 06/11/24 08:47
Physical Exam
General: Well Developed, Well Nourished and No Apparent Distress
HEENT: Normocephalic, Anicteric and Moist Mucous Membranes
Respiratory: Clear and Non Labored Respirations
Cardiac: S1/S2, Regular Rhythm (bradycardia in 50s) and Murmur (2/6 KELLY)
Breast: Deferred by me
GI: Soft, Non Tender, Non Distended and Normal Bowel Sounds
Rectal: Deferred by Provider
Genito-urinary: No Costovertebral Tender
Musculoskeletal: No Clubbing, No Cyanosis and No Edema
Skin: Warm and Dry
Neuro: AO x 3
Hematologic/Lymphatic: No Lymphadenopathy
Psych: Calm
Impression / Plan
-
Bradycardia - sinus w/o pauses.
- on amiodarone 200mg daily, will reduce to 200mg 4 days a week.
- monitor.
SOB/TAO - no overt HF on exam.
- CXR w/o HF.
- elevated creatinine, likely dry since on diuretics, hold diuretics.
- check echo.
- troponin < 0.012 and EKG w/o ischemia.
MVP/MR - moderate on echo 02/2024.
- check echo given SOB/TAO symptoms.
HTN - check orthostatic vitals.
Afib - stable in sinus bradycardia/sinus rhythm.
- s/p ablation 02/2024.
- continue Eliquis.
JACKIE - acute.
- creatinine 1.8, higher than baseline.
- likely due to recent diuresis as outpatient.
- hold Lasix and Aldactone.
Data Reviewed
-
EKG: Tracing Personally Visualized and interpreted (sinus bradycardia 49 bpm 1st degree AVB, LVH.)
Radiology: Report Reviewed by me (cxr: no active disease)
Medical Tests (Nuc Med, Echo etc): Report Reviewed by me (echo 02/2024: EF 55-60%, MVP wtih moderate MR, PASP 55-60 mmHg.)
Labs: Labs Reviewed by me
Old Records: Reviewed
--- NOTE | 2024-06-11 12:30 | EDRN ---
Palmer SHRESTHA in to see pt.
--- NOTE | 2024-06-11 12:57 | EDRN ---
During orthostatic vs pt had slight dizziness on initially sitting and then again on standing that went away in seconds. Palmer SHRESTHA was informed about orthostatic VS
[2024-06-11 14:18] LABS: TSH Reflex To Free T4 2.44 uIU/ml (0.47-4.68)
--- NOTE | 2024-06-11 14:46 | EDRN ---
Per Palmer SHRESTHA pt will be admitted for IVF as BP decreased during orthostatics.
--- NOTE | 2024-06-11 14:50 | W.PN.UPDATE ---
Update Note
Progress Note Update
This is an addendum to the H&P written by Ese Rivera on 06/11/2024. Patient seen and examined independently with PA.
78-year-old male past medical history of persistent atrial fibrillation on Eliquis status post ablation in February, nonobstructive CAD, hypertension, hyperlipidemia, mitral valve prolapse, moderate mitral regurgitation, HFpEF, pulmonary
hypertension, CVA, prediabetes, presenting with generalized fatigue, weakness and shortness of breath with exertion and dizziness with exertion for the past 10 days. Also with 13 pound weight loss, poor appetite. He saw his bobbin doffer Dr. Wright
2 to 3 weeks ago and was restarted on Lasix and spironolactone.
First EKG showed atrial fibrillation with heart rate of 51. Second EKG showed sinus bradycardia with first-degree AV block heart rate 49.
Chest x-ray shows no evidence of cardiopulmonary disease. Cardiac BNP of 190.
Labs show creatinine of 1.8 from baseline around 1.4.
Patient with positive orthostatic vital signs likely the cause of symptoms. Check TSH. Bedside echocardiogram pending. Cardiology consulted. 500 cc IV fluid bolus given JACKIE and hold diuretics.
Cardiology wants to decrease amiodarone dosage.
--- NOTE | 2024-06-11 16:00 | W.PN.UPDATE ---
Update Note
Progress Note Update
-Patient's echocardiogram today revealed normal LVEF of 65-70% with no regional wall motion abnormalities and mild to moderate mitral regurgitation.
-Patient has no acute cardiac issues.
-Cardiology will remain available on an as-needed basis; patient can follow-up as an outpatient as scheduled.
--- NOTE | 2024-06-11 17:00 | PTCARENOTE ---
pt admitted from ED AOx3 denies pain SOB LCTA B/L on RA. Sinus jemal. abd soft NT +BSx4. cont b&b last BM today. No edema +PP b/l. reviewed POC and CB use. CB in reach.
[2024-06-11] MEDS: ELIQUIS 5 MG PO (20:08)
[2024-06-11] MEDS: LIPITOR 80 MG PO (21:08)
[2024-06-12] VITALS (9 sets, daily range): BP systolic 131–195; BP diastolic 74–92; PULSE 57–68; BMI 24.2
[2024-06-12 06:26] LABS: Hematocrit 33.9 % (39.0-52.0); Hemoglobin 11.3 g/dL (13.0-18.0); Mean Corp Hgb Conc. 33.3 g/dL (33.0-37.0); Mean Platelet Volume 9.2 fL (7.4-10.4); Platelet Count 188 10^3/uL (130-400); Red Blood Cell Count 3.53 10^6/uL (4.70-6.10); Red Cell Dist. Width 13.9 % (11.5-14.5); White Blood Cell Count 7.5 10^3/uL (4.8-10.8)
[2024-06-12 06:39] LABS: Blood Urea Nitrogen 36 mg/dl (9-20); Carbon Dioxide 21 mmol/L (22-30); Chloride 109 mmol/L (98-107); Estimated Creatinine Clearance 38 ml/min; Glucose 90 mg/dl (70-99); Potassium 4.8 mmol/L (3.5-5.1); Sodium 138 mmol/L (135-145); eGFR 46.77
--- NOTE | 2024-06-12 07:04 | W.PN.HOSP.TC ---
Today's Communication/Plan
-
monitor BP, orthostatic vitals, renal function
resume lisinopril reduced dose
daily weight I/O
Assessment / Plan
Assessment / Plan
Physical Exam
General: no acute distress appears comfortable at this time.
HEENT: Anicteric and Moist mucous membranes
Respiratory: Clear and Non Labored Respirations
Cardiac: S1/S2 and Regular Rhythm
GI: Soft and Non Tender
Musculoskeletal: No Clubbing, No Cyanosis and No Edema
Skin: Warm and Dry
Neuro: AOx3 conversant coherent
Psych: Calm
78M CAD CHF afib HTN CAD here with symptomatic orthostatic hypotension and JACKIE
Orthostatic Hypotension
-received IVF overnight
-Hold Lasix and Spironolactone
-Add GINA stockings
-Orthostatic Vitals since improved
Acute Kidney Injury, likely from over-diuresis
-Hold Lasix and Spironolactone
-JACKIE resolving
-home Lisinopril resumed reduced dose
Persistent Atrial Fibrillation
-Continue amiodarone at decreased dose as per Cardiology
-Continue Eliquis
Chronic HFpEF
Moderate Mitral Regurgitation with Mitral Valve Prolapse
-Monitor Is&Os and Daily Weights
Essential Hypertension
-Lisinopril hold due to JACKIE
-Monitor blood pressure closely
Hyperlipidemia
-Continue atorvastatin and Zetia
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
Hx Non-Obstructive Coronary Artery Disease
DVT proph: Eliquis
Code Status: Full Code
I spent a total of 50 minutes with the patient or on the floor. More than 50% of this time involved counseling and coordination of care.
Anticipated Discharge: 24 - 48 hours
Subjective/Interval History
-
Date of Service: June 12, 2024
Objective Data
-
Labs:
Laboratory Results
06/12/24
05:40
WBC 7.5
Hgb 11.3 L
Hct 33.9 L
Plt Count 188
Sodium 138
Potassium 4.8 D
Chloride 109 H
Carbon Dioxide 21 L
BUN 36 H
Creatinine 1.5 H
Glucose 90
Calcium 9.0
Vital Signs:
Vital Signs
Temp Pulse Resp BP Pulse Ox
97.3 F 56 16 154/75 97
06/12/24 02:56 06/12/24 02:56 06/12/24 02:56 06/12/24 02:56 06/12/24 02:56
I&O
06/11/24 06/12/24 06/13/24
06:59 06:59 07:59
Intake Total 1360 / 1360
Balance 1360 / 1360
[2024-06-12] MEDS: ELIQUIS 5 MG PO ×2 (09:02→20:18)
[2024-06-12] MEDS: ZETIA 10 MG PO (09:02)
[2024-06-12] MEDS: ZESTRIL 20 MG PO (09:25)
--- NOTE | 2024-06-12 15:59 | CM ---
CM reviewed medical records. CM met with patient and in room. Patient confirmed demographics. Patient lives independently with . Patient has a first floor set up. Patient does not have a history of VN< SNF or DME. Patient is active with
his PCP. Patient uses [employer] for mediation services.
PLAN:home no needs.
[2024-06-12] MEDS: PACERONE 200 MG PO (21:19)
[2024-06-12] MEDS: LIPITOR 80 MG PO (21:21)
[2024-06-13 04:00] VITALS: BP 151/80
--- NOTE | 2024-06-13 07:09 | W.PN.HOSP.TC ---
Today's Communication/Plan
-
discharge
Assessment / Plan
Assessment / Plan
Physical Exam
General: no acute distress appears comfortable at this time.
HEENT: Anicteric and Moist mucous membranes
Respiratory: Clear and Non Labored Respirations
Cardiac: S1/S2 and Regular Rhythm
GI: Soft and Non Tender
Musculoskeletal: No Clubbing, No Cyanosis and No Edema
Skin: Warm and Dry
Neuro: AOx3 conversant coherent
Psych: Calm
78M CAD CHF afib HTN CAD here with symptomatic orthostatic hypotension and JACKIE
Orthostatic Hypotension
-received IVF overnight
-Hold Lasix and Spironolactone
-Add GINA stockings
-Orthostatic hypotension since resolved
Acute Kidney Injury, likely from over-diuresis
-Hold Lasix and Spironolactone
-JACKIE resolving
-home Lisinopril resumed reduced dose since titrated back to home dose
Persistent Atrial Fibrillation
-Continue amiodarone at decreased dose as per Cardiology
-Continue Eliquis
Chronic HFpEF
-Moderate Mitral Regurgitation with Mitral Valve Prolapse
-Monitor Is&Os and Daily Weights
-home lasix to switch to prn on discharge.
Essential Hypertension
-Lisinopril held due to JACKIE since resumed
-cont hold Aldactone on discharge, d/t concern hyperkalemia with Lasix switched to prn,
-amlodipine 2.5 mg daily added
-Lasix to switch to prn wt gain 3lb overnight of 5 lbs in a weeks
Hyperlipidemia
-Continue atorvastatin and Zetia
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
Hx Non-Obstructive Coronary Artery Disease
DVT proph: Eliquis
Code Status: Full Code
Total Time Preparing Discharge ___40____ minutes including examination of the patient, summary of the hospital stay, instructions for continuing care to all relevant caregivers; and preparation of discharge records, prescriptions, and referral
forms if necessary.
Anticipated Discharge: Today
Subjective/Interval History
-
Date of Service: June 13, 2024
Overall reports feeling well. Ambulating without issues or need for assist device. Denies new acute issues. Orthostatic vitals neg for hypotension. Eager to go home.
Objective Data
-
Labs:
Laboratory Results
06/13/24 06/13/24
06:15 06:16
WBC Pending
Hgb Pending
Hct Pending
Plt Count Pending
Sodium Pending
Potassium Pending
Chloride Pending
Carbon Dioxide Pending
BUN Pending
Creatinine Pending
Glucose Pending
Calcium Pending
Vital Signs:
Vital Signs
Temp Pulse Resp BP Pulse Ox
97.5 F 62 18 151/80 99
06/13/24 04:00 06/13/24 04:00 06/13/24 04:00 06/13/24 04:00 06/13/24 04:00
I&O
06/12/24 06/13/24 06/14/24
05:59 06:59 06:59
Intake Total
Balance
[2024-06-13 07:11] LABS: Hematocrit 34.4 % (39.0-52.0); Hemoglobin 11.7 g/dL (13.0-18.0); Mean Corpuscular Hgb 31.9 pg (27.0-31.0); Mean Corpuscular Volume 93.7 fL (80.0-94.0); Mean Platelet Volume 9.3 fL (7.4-10.4); Platelet Count 203 10^3/uL (130-400); Red Blood Cell Count 3.67 10^6/uL (4.70-6.10); Red Cell Dist. Width 13.8 % (11.5-14.5); White Blood Cell Count 6.8 10^3/uL (4.8-10.8)
[2024-06-13 07:34] LABS: Blood Urea Nitrogen 27 mg/dl (9-20); Calcium 9.3 mg/dl (8.4-10.2); Carbon Dioxide 22 mmol/L (22-30); Chloride 108 mmol/L (98-107); Estimated Creatinine Clearance 41 ml/min; Glucose 119 mg/dl (70-99); Phosphorus 3.2 mg/dl (2.5-4.5); Potassium 4.5 mmol/L (3.5-5.1); Sodium 137 mmol/L (135-145); eGFR 50.81
[2024-06-13 07:35] VITALS: BP 146/80
[2024-06-13 07:37] VITALS: BP 137/80; BP 146/80; BP 147/81; PULSE 49; PULSE 53; PULSE 60
[2024-06-13 07:38] VITALS: BMI 24.3
[2024-06-13] MEDS: ZESTRIL 20 MG PO ×2 (09:07→12:16)
[2024-06-13] MEDS: VITAMIN D3 (cholecalciferol) 25 MCG PO (09:07)
[2024-06-13] MEDS: ZETIA 10 MG PO (09:07)
[2024-06-13] MEDS: ELIQUIS 2.5 MG PO ×2 (09:07→12:16)
[2024-06-13] MEDS: VITAMIN C 500 MG PO (09:08)
[2024-06-13 09:38] VITALS: BMI 24.2
[2024-06-13] MEDS: ZESTRIL PO (10:28)
[2024-06-13] MEDS: ELIQUIS PO (10:29)
[2024-06-13 11:25] VITALS: BP 158/79
[2024-06-13 13:47] VITALS: BP 146/80; BP 153/78; BP 157/76; PULSE 55; PULSE 57; PULSE 63
[2024-06-13] MEDS: NORVASC 2.5 MG PO (17:31)
[2024-06-13 17:33] VITALS: BP 153/86
--- NOTE | 2024-06-13 17:34 | W.DCSUMMARY ---
Discharge Summary
Discharge Data
Date of Admission: 06/11/24
Date of Discharge: 06/13/24
-
Pending Results: No
Discharge Plan
-
Patient Disposition: Home (Routine Discharge)
Discharge Diagnosis/Procedures: Orthostatic Hypotension
Acute Kidney Injury
Hypertension
Atrial Fibrillation status post ablation February 2024
Chronic Heart Failure with Preserved Ejection Fraction
Condition: Fair
Diet: 2 Gram Sodium
Activity: As tolerated
Driving Restrictions: As prior to admission
Bathing Restrictions: None
Blood Work: Repeat BMP in 2-3 days of discharge, results to be forwarded to primary care provider and Glass Breaker. Script provided to facilitate
Specialty Instructions: Weigh Daily- Call MD for wt gain/loss 3 lbs overnight/5 lbs in 1 week
Activity Restrictions/Additional Instructions:
Please follow up with primary care provider in 1 week of discharge and Cardiology in 2 weeks of discharge.
Amiodarone has been reduced to 200 mg 4 times a week (Friday) as per cardiology recommendations.
Amlodipine has been prescribed for Hypertension in place of Aldactone (due to concerns overdiuresis and acute kidney injury).
Lasix for heart failure has been switched to as needed for weight gain 3lbs overnight or 5 lbs in a week (also due to concerns overdiuresis and acute kidney injury)
Please take medications as prescribed/recommended and follow up with primary care provider and/or other healthcare provider involved in your care for refills and/or further adjustment to your medication regimen as necessary.
Referrals:
Jaren Ayon MD [Family Provider] - in one week
Willard Wright MD [Active] - in two weeks
Prescriptions:
New
amiodarone 200 mg Tablet
200 mg PO SuTuThSa@2200 Qty: 30 0RF
amlodipine 2.5 mg Tablet
2.5 mg PO DAILY Qty: 30 0RF
Continued
atorvastatin 80 MG tablet
80 mg PO HS
Eliquis 5 mg Tablet
5 mg PO BID
ascorbic acid (vitamin C) [Vitamin C] 500 mg Tablet
500 mg PO DAILY
lisinopril 40 mg Tablet
40 mg PO DAILY
cholecalciferol (vitamin D3) [Vitamin D3] 25 mcg (1,000 unit) Tablet
25 mcg PO DAILY
ezetimibe 10 mg Tablet
10 mg PO DAILY Qty: 30 0RF
Changed
furosemide [Lasix] 20 mg Tablet
40 mg PO DAILY PRN (Reason: Fluid Retention/Swelling) Qty: 0 0RF
Rx Instructions:
weight gain 3 lbs overnight or 5 lbs in a week
Held
spironolactone 25 mg Tablet
25 mg PO DAILY Qty: 30 0RF
Hold Instructions: Follow up with degreaser operator and/or primary care provider to determine when safe to resume, if necessary to resume, and/or if an alternative agent is required instead.
Discontinued
amiodarone 200 mg tablet
200 mg PO HS
Discharge Orders:
Discharge Patient (As Directed); Ordered 06/13/24
Ordered By: Blane Pool
Discharge Date and Time
Print Language: KYRGYZ
--- NOTE | 2024-06-13 17:50 | CM ---
CM reviewed medical records. Plan for discharge today. Home no needs
PLAN: home no needs.
== END 2024-06-13 18:32 | disposition home or self-care (01) | DRG 683 ==
LOC: 1 ACUTE 15:03
PROVIDERS: Emergency Medicine; Physician Assistant Medical; Registered Nurse; ADMITTING PHYSICIAN Hospitalist; ATTENDING PHYSICIAN Internal Medicine; CONSULT PHYSICIAN Internal Medicine; EMERGENCY PHYSICIAN Student in an Organized Health Care Education/Training Program; FAMILY PHYSICIAN Family Medicine
DX: N17.9 Acute kidney failure, unspecified (principal); I13.0 Hypertensive heart and chronic kidney disease with heart failure and stage 1 through stage 4 chronic kidney disease, or unspecified chronic kidney disease; I48.19 Other persistent atrial fibrillation; I50.32 Chronic diastolic (congestive) heart failure; I95.1 Orthostatic hypotension; Z11.52 Encounter for screening for COVID-19; N18.9 Chronic kidney disease, unspecified; Z79.01 Long term (current) use of anticoagulants; T50.2X5A Adverse effect of carbonic-anhydrase inhibitors, benzothiadiazides and other diuretics, initial encounter; I34.0 Nonrheumatic mitral (valve) insufficiency; I34.1 Nonrheumatic mitral (valve) prolapse; E78.00 Pure hypercholesterolemia, unspecified; Z86.73 Personal history of transient ischemic attack (TIA), and cerebral infarction without residual deficits; Z79.899 Other long term (current) drug therapy
CPT/HCPCS: 71046; 80048; 80053; 83735; 83880; 84100; 84443; 84484; 85025; 85027; 87502; 87811; 93005; 93306; 96360; 99285

== ENCOUNTER → 2024-06-23 09:19 | Outpatient (REF) | payer MEDICARE, OTHER, SELFPAY | LOC: RCS 09:19 | PROVIDERS: ATTENDING PHYSICIAN Internal Medicine Cardiovascular Disease; FAMILY PHYSICIAN Family Medicine | DX: I44.4 Left anterior fascicular block (principal) | CPT/HCPCS: 93225; 93226 ==

== ENCOUNTER → 2024-06-30 13:15 | Outpatient (REF) | payer MEDICARE, OTHER, SELFPAY | LOC: RAD 13:15 | PROVIDERS: ATTENDING PHYSICIAN Internal Medicine Cardiovascular Disease; FAMILY PHYSICIAN Family Medicine | DX: Z98.890 Other specified postprocedural states (principal); R06.09 Other forms of dyspnea | CPT/HCPCS: 71046; 78582; A9540; A9567 ==

== ENCOUNTER → 2024-07-16 08:41 | Outpatient (REF) | payer MEDICARE, OTHER, SELFPAY | LOC: MRI 3T 08:41 | PROVIDERS: ATTENDING PHYSICIAN Nurse Practitioner; FAMILY PHYSICIAN Family Medicine | DX: Z86.73 Personal history of transient ischemic attack (TIA), and cerebral infarction without residual deficits (principal) | CPT/HCPCS: 70551 ==

== ENCOUNTER → 2025-02-14 10:11 | Outpatient (REF) | payer MEDICARE, OTHER, SELFPAY | LOC: RCS 10:11 | PROVIDERS: ATTENDING PHYSICIAN Internal Medicine Cardiovascular Disease; FAMILY PHYSICIAN Family Medicine | DX: I34.0 Nonrheumatic mitral (valve) insufficiency (principal); I34.1 Nonrheumatic mitral (valve) prolapse | CPT/HCPCS: 93306 ==